=== PATIENT | female | born 1990 | race Caucasian/White ===

== ENCOUNTER 2023-10-13 07:54 | Emergency (ER) | payer OTHER, SELFPAY ==
--- NOTE | ~2023-10-13 | CT_ITS ---
EXAMINATION: CT ABDOMEN AND PELVIS WITH CONTRAST CLINICAL INFORMATION: CVA abdominal pain COMPARISON: None available. TECHNIQUE: Multidetector volumetric images were obtained from the superior aspect of the liver through the pubic symphysis following administration 85 mL of Omnipaque 350 intravenous contrast. Sagittal and coronal reformatted images were obtained on the technologist's workstation. Oral contrast: No This CT examination was performed using dose optimization techniques as appropriate, variously including the following: *Automated exposure control *Adjustment of mA and/or kV according to patient size (this includes techniques or standardized protocols for targeted exams where dose is matched to indication/reason for exam; i.e. extremities or head) *Use of iterative reconstruction technique DLP: 571 mGy-cm FINDINGS: LUNG BASES: The visualized lung bases are unremarkable. LIVER, GALLBLADDER, AND BILIARY TREE: The liver is normal in size, shape, and attenuation. No focal hepatic lesion or biliary ductal dilatation is present. The gallbladder has been surgically removed. PANCREAS: Unremarkable. SPLEEN: Unremarkable. ADRENAL GLANDS: Unremarkable. KIDNEYS AND URETERS: The kidneys are normal in size, shape, and attenuation. No hydronephrosis, hydroureter, or calculi seen. No perinephric stranding. BLADDER: Unremarkable. GASTROINTESTINAL TRACT: There is scattered stool and gas seen throughout the colon without any significant distention. The small bowel loops are normal caliber. Appendix is normal caliber. There is no free fluid or free air. ABDOMINAL WALL: Unremarkable LYMPH NODES: Normal. VASCULAR: Unremarkable. PELVIC VISCERA: Animal free fluid in the pelvis. The uterus is anteverted with a well placed IUD. The ovaries are unremarkable with a irregular shaped enhancing right ovarian density question ruptured corpus luteal cyst. OSSEOUS STRUCTURES: No lytic or sclerotic process seen. CT/CT abdomen pelvis w IV con IMPRESSION: 1. No acute intra-abdominal process seen. 2. Mild constipation. Normal appendix. Fleischner guidelines were followed.
[2023-10-13 08:00] VITALS: BP 143/72; BP 152/84; PULSE 60; PULSE 68; RESP 20; TEMP 36.6; O2SAT 100; O2SAT 98; BMI 34.6
--- NOTE | 2023-10-13 08:06 | ED.NAVMDI ---
HPI - Nausea/Vomiting/Diarrhea General Chief complaint: Abdominal Pain Stated complaint: ABD PAIN Source: patient, EMS and old records reviewed Mode of arrival: EMS Limitations: no limitations History of Present Illness HPI Narrative: 33 yo female with PMH of GERD, anxiety, s/p cholecystectomy, has IUD notes a few years ago was admitted to [facility] with NG tube and abdominal pain but isn't sure why or if it was SBO. She comes in today with c/o abrupt onset n/v/d abdominal cramps that started at 7am. Pain is in upper abdomen. No fevers, no sick contacts, no food exposures. MD elicited complaint: nausea, vomiting, diarrhea and abdominal pain Onset (ago): hour(s) (7am today) Description of vomiting: food contents and watery Description of diarrhea: watery Associated nausea: Yes Associated abdominal pain: Yes Location of pain: epigastric Pain consistency: constant Severity: severe Quality: cramping Exacerbating factors: eating Relieving factors: none Associated symptoms: nausea/vomiting, weakness and other (sweats) Treatment prior to arrival: other (EMS gave zofran with good response) Related Data Previous Rx's Medication Instructions Recorded famotidine 20 mg tablet (Pepcid) 20 mg PO DAILY PRN abdominal 10/13/23 discomfort #30 tabs famotidine 20 mg tablet (Pepcid) 20 mg PO DAILY PRN abdominal 10/13/23 discomfort #30 tabs Allergies Allergy/AdvReac Type Severity Reaction Status Date / Time bactrim Allergy Intermediate Rash Uncoded 10/13/23 08:04 Review of Systems Review of Systems: Constitutional : No Weight loss, No Fever, No Chills ENT/Mouth : No sore throat, No Rhinorrhea Eyes: No Swelling, No Redness Cardiovascular : No Chest Pain, No SOB, NoEdema Respiratory : No Cough, No Sputum, No Wheezing Gastrointestinal : Positive Nausea, Positive Vomiting, positive Diarrhea, positive abdominal Pain, No Hematochezia, No Melena Genitourinary : No Dysuria, No Urinary Frequency, No Hematuria, No Urgency Musculoskeletal : No joint pain, No Myalgias, No Joint Swelling Skin : No Skin Lesions, No rash Neuro : No Weakness, No Numbness, No Dizziness, No Headache Psych : No Anxiety/Panic, No Depression All other systems reviewed and are negative. Gastrointestinal: Gastrointestinal: Reports nausea PMFSH Past Medical History Attestation statement: The following information was validated with the patient. Medical History Anxiety GERD (gastroesophageal reflux disease) Surgical History Hx of cholecystectomy Social History Social History Smoked in Last 30 Days: No Use of substances other than those prescribed or required for medical reasons: No Advance Directives: No Advance Directives Information Provided: No Patient : No Physical Exam Vital Signs: Vital Signs: Last Vital Signs Temp 97.8 F 10/13/23 08:00 Pulse 104 H 10/13/23 09:58 Resp 24 H 10/13/23 09:58 BP 143/72 H 10/13/23 08:00 Pulse Ox 96 10/13/23 09:58 O2 Del Method Room Air 10/13/23 09:58 BMI result Body Mass Index 34.6 Appearance: Alert. Oriented X3. Mild acute distress. Eyes: Pupils equal, round and reactive to light. ENT: Pharynx normal. Neck: Normal inspection. Neck supple. CVS: Normal heart rate and rhythm. Pulses normal. Respiratory: No respiratory distress. Breath sounds normal. Abdomen: Soft and moderate epigastric pain no rebound Skin: Skin warm and dry. Normal skin color. Normal skin turgor. Extremities: No lower extremity edema. No calf ttp Neuro: Oriented X 3. No motor deficit. No sensory deficit. Course Course Course Narrative: [address] [facility] [address] scan after similar episode to today possible early focal colitis of hepatic flexure treated with ceftriaxone and flagyl for possible infectious colitis no NG tube noted in documents and no NG tube uneventful admission DC on augmentin neg for cdiff Reevaluation(s) Reevaluation #1: no relief with IV morphine, IV dilaudid ordered and CT Scan given degree of pain Reevaluation #2: kept down ainsley brook and crackers Medications Administered Discontinued Medications Generic Name Dose Route Start Last Admin Trade Name Freq PRN Reason Stop Dose Admin Famotidine 20 mg 10/13/23 08:04 10/13/23 08:17 Famotidine/Pf 20 Mg/2 Ml Vial IVPUSH 10/13/23 08:05 20 mg ONCE ONE Administration Hydromorphone HCl 1 mg 10/13/23 09:53 10/13/23 09:57 Hydromorphone Hcl 1 Mg/Ml Syringe IVPUSH 10/13/23 09:54 1 mg ONCE ONE Administration Protocol Sodium Chloride 1,000 mls @ 999 mls/hr 10/13/23 08:15 10/13/23 09:36 Ns IV 10/13/23 09:15 Infused .Q1H1M ADALI Infusion Iohexol 85 ml 10/13/23 10:27 10/13/23 10:27 Iohexol 350 Mg/Ml 75 Ml Infus..Btl IV 10/13/23 10:28 85 ml ONCE ONE Administration Ketorolac Tromethamine 15 mg 10/13/23 08:04 10/13/23 08:16 Ketorolac Tromethamine 15 Mg/Ml Vial IVPUSH 10/13/23 08:05 15 mg ONCE ONE Administration Lorazepam 1 mg 10/13/23 11:23 10/13/23 11:29 Lorazepam 1 Mg Tablet PO 10/13/23 11:24 1 mg ONCE ONE Administration Morphine Sulfate 4 mg 10/13/23 08:25 10/13/23 09:24 Morphine Sulfate 4 Mg/Ml Cartridge IVPUSH 10/13/23 08:26 4 mg ONCE ONE Administration Protocol Medical Decision Making Medical Decision Making MDM Narrative: 33 yo female with PMH of GERD, anxiety, s/p cholecystectomy, has IUD here with c/o abrupt onset n/v/d and abdominal cramps without known exposure at this time she also notes an admission to [facility] a few years back requiring NG tube. Will obtain labs, hydrate, pepcid, toradol and obtain records. She notes everything was abrupt onset at once so seems more likely to be viral syndrome in nature. No travel, food exposures, sick contacts. Differential Diagnosis Differential Diagnoses: The differential diagnosis associated with the presentation includes pancreatitis, gastritis, viral syndrome Admission/Observation Consideration of admission/observation: Escalation of care including admission/observation considered labs and CT scan negative symptoms improved able to tolerate PO Lab Data [facility] Lab Attestation statement: I reviewed the patient's lab results. 10/13/23 08:37 10/13/23 08:37 Labs: Lab Results 10/13/23 10/13/23 10/13/23 Range/Units 08:11 08:37 09:01 WBC 10.7 (4.8-10.8) X10*3/uL RBC 5.24 (4.20-5.50) X10*6/uL Hgb 15.6 (12.0-16.0) g/dl Hct 46.7 (37.0-47.0) % MCV 89.1 (80.0-98.0) fL MCH 29.8 (27.0-33.0) pg MCHC 33.4 (31.0-35.0) g/dl RDW 13.7 (11.0-16.0) % Plt Count 265 (160-400) X10*3/uL MPV 9.8 (9.4-12.3) fL Immature Gran % (Auto) 0.5 H (0.0-0.4) % Neut % (Auto) 77.3 H (45-73) % Lymph % (Auto) 14.7 L (20-40) % [place] % (Auto) 4.7 (2-11) % Eos % (Auto) 2.5 (0-4) % Baso % (Auto) 0.3 (0-2) % Lymph # (Auto) 1.6 (1.2-4.9) X10*3/uL [place] # (Auto) 0.5 (0.1-1.2) X10*3/uL Eos # (Auto) 0.3 (0.0-0.4) X10*3/uL Baso # (Auto) 0.0 (0.0-0.2) X10*3/uL Abs Immat Gran (auto) 0.05 H (0.00-0.03) X10*3/uL Absolute Neuts (auto) 8.2 (2.0-8.3) x10*3/uL Absolute Nucleated RBC 0.000 (0.0-0.012) X10*3/uL Nucleated RBC % (auto) 0.0 (0.0-0.2) /100WBC Sodium 143 (135-145) mmol/L Potassium 4.0 (3.3-5.1) mmol/L Chloride 110 H (96-108) mmol/L Carbon Dioxide 23 (22-29) mmol/L Anion Gap 14 (12-20) BUN 10 (9-16) mg/dL Creatinine 0.75 (0.5-1.4) mg/dL Estim Creat Clear Calc 110.6 Estimated GFR > 60 Random Glucose 86 (60-115) mg/dL Calcium 8.3 L (8.4-10.2) mg/dL Magnesium 2.1 (1.6-2.6) mg/dL Total Bilirubin 0.4 (0.0-1.0) mg/dL Direct Bilirubin 0.1 (0.0-0.5) mg/dL AST 21 (5-31) U/L ALT 21 (0-31) U/L Alkaline Phosphatase 35 L (39-117) U/L Total Protein 5.6 L (6.5-8.0) g/dL Albumin 3.4 L (3.5-5.0) g/dL Lipase 14 (8-78) U/L Beta HCG, Quant < 2 mIU/mL Urine Color Yellow Urine Appearance Cloudy Urine pH 7.0 (5.0-9.0) Ur Specific [place] 1.020 (1.005-1.025) Urine Protein Trace (Neg-Trace) mg/dL Urine Glucose (UA) Negative (Negative) mg/dL Urine Ketones Trace (Negative) mg/dL Urine Blood Negative (Negative) Urine Nitrite Negative (Negative) Ur Leukocyte Esterase Small (1+) H (Negative) Urine RBC 0-2 (0-2) /HPF Urine WBC 6-10 (0-5) /HPF Ur Squamous Epith Cells 11-20 (0-2) /HPF Urine Bacteria 1+ (None Seen) Hyaline Casts 0-2 (0-2) /LPF COVID-19 (JE) Negative (Negative) COVID-19 Clin Com See Note Influenza Type A (BETTY) Negative (Negative) Influenza Type B (BETTY) Negative (Negative) Influenza A & B Note See Note Independent Interpretation I performed an independent interpretation of an: CT Scan (no acute findings) Radiology Impression Discussion of test interpretation with radiology: I have reviewed the radiologist's reading. Independent Historian Clinical information obtained from an independent historian. History obtained from or confirmed by: EMS External Record Review External record reviewed: Outpatient record Prescription Management I considered prescription management with: Pain Medication and Other Critical Care Time Critical Care Time Critical Care Time: Yes Total Critical Care Time: 45 Attestation: repeat IV morphine/dilaudid for pain with some improvement, outpatient records review I attest to this time spent taking care of the patient Discharge Plan Discharge Clinical Impression: Abdominal pain Qualifiers: Abdominal location: epigastric Qualified Code(s): R10.13 - Epigastric pain Vomiting Qualifiers: Vomiting type: unspecified Nausea presence: with nausea Qualified Code(s): R11.2 - Nausea with vomiting, unspecified Diarrhea Qualifiers: Diarrhea type: unspecified type Qualified Code(s): R19.7 - Diarrhea, unspecified Patient Disposition: Home, Self-Care Instructions: Acute Nausea and Vomiting (ED), Acute Diarrhea (ED), Abdominal Pain (ED) Additional Instructions: eat a bland diet and advance slowly over 48 hours. return for fevers, worsening pain, increased vomiting inability to eat or drink or any other concerns. Prescriptions: New famotidine [Pepcid] 20 mg tablet 20 mg PO DAILY PRN (Reason: abdominal discomfort) Qty: 30 0RF famotidine [Pepcid] 20 mg tablet 20 mg PO DAILY PRN (Reason: abdominal discomfort) Qty: 30 0RF Stand Alone Forms: Work/School Release
[2023-10-13] MEDS: 0.9 % Sodium Chloride 1,000 ML 999 ML IV (08:16)
[2023-10-13] MEDS: Ketorolac Tromethamine 15 MG/ML VIAL IVPUSH (08:16)
[2023-10-13] MEDS: Famotidine/PF 20 MG/2 ML VIAL IVPUSH (08:17)
[2023-10-13 08:41] LABS: MANUAL DIFF FLAG NO
[2023-10-13 08:43] LABS: Basophils Percent Auto 0.3 % (0-2); Eosinophils Absolute Auto 0.3 X10*3/uL (0.0-0.4); Eosinophils Percent Auto 2.5 % (0-4); Hematocrit 46.7 % (37.0-47.0); Hemoglobin 15.6 g/dl (12.0-16.0); Imm Gran Abs Auto 0.05 X10*3/uL (0.00-0.03); Imm Gran Pct Auto 0.5 % (0.0-0.4); Lymphocytes Absolute Auto 1.6 X10*3/uL (1.2-4.9); Lymphocytes Percent Auto 14.7 % (20-40); Mean Corpuscular HGB Conc 33.4 g/dl (31.0-35.0); Mean Corpuscular Hemoglobin 29.8 pg (27.0-33.0); Mean Corpuscular Volume 89.1 fL (80.0-98.0); Mean Platelet Volume 9.8 fL (9.4-12.3); Monocytes Absolute Auto 0.5 X10*3/uL (0.1-1.2); Monocytes Percent Auto 4.7 % (2-11); Neutrophils Absolute Auto 8.2 x10*3/uL (2.0-8.3); Neutrophils Percent Auto 77.3 % (45-73); Platelet Count 265 X10*3/uL (160-400); Red Blood Count 5.24 X10*6/uL (4.20-5.50); Red Cell Distribution Width 13.7 % (11.0-16.0); White Blood Count 10.7 X10*3/uL (4.8-10.8)
[2023-10-13 08:44] LABS: COVID-19 Test Negative (Negative); IDNOW Serial# 08D9AD1C; IDNOW Serial# 152EDE1D
[2023-10-13 08:45] LABS: Influenza A Negative (Negative); Influenza B2 Negative (Negative)
[2023-10-13 09:07] LABS: Appearance Urine Cloudy; Color Urine Yellow; Glucose Urine UA Negative (Negative); Leukocyte Esterase Urine Small (1+) (Negative); Nitrite Urine Negative (Negative); UMIC TRIGGER UACC YES; Urine Blood Negative (Negative); Urine Ketones Trace mg/dL (Negative); Urine Protein Trace mg/dL (Neg-Trace)
[2023-10-13 09:13] LABS: Alanine Aminotransferase 21 U/L (0-31); Albumin Level 3.4 g/dL (3.5-5.0); Alkaline Phosphatase 35 U/L (39-117); Anion Gap 14 (12-20); Aspartate Amino Transferase 21 U/L (5-31); Bilirubin Direct 0.1 mg/dL (0.0-0.5); Bilirubin Total 0.4 mg/dL (0.0-1.0); Blood Urea Nitrogen 10 mg/dL (9-16); Calcium 8.3 mg/dL (8.4-10.2); Carbon Dioxide 23 mmol/L (22-29); Chloride 110 mmol/L (96-108); Creatinine Clr Calc Pharmacy 110.6; Estimated Glomerular Filt Rate > 60; Glucose Random 86 mg/dL (60-115); Lipase 14 U/L (8-78); Magnesium 2.1 mg/dL (1.6-2.6); Sodium 143 mmol/L (135-145); Total Protein 5.6 g/dL (6.5-8.0)
[2023-10-13 09:16] LABS: HCG Quantitative < 2 mIU/mL
[2023-10-13 09:16] LABS: Bacteria Urine 1+ (None Seen); Hyaline Casts Urine 0-2 /LPF (0-2); RBC Urine 0-2 /HPF (0-2); UACC Culture Trigger YES
[2023-10-13] MEDS: Morphine Sulfate 4 MG/ML CARTRIDGE IVPUSH (09:24)
[2023-10-13 09:57] VITALS: RESP 24
[2023-10-13] MEDS: HYDROmorphone HCl 1 MG/ML SYRINGE IVPUSH (09:57)
[2023-10-13 09:58] VITALS: PULSE 104; RESP 24; O2SAT 96
--- NOTE | 2023-10-13 10:00 | PC.NURSE ---
pt c/o severe acute abdominal pain, similar to this mornings episode. pt tearful, tachycardic and tachypnic. MD Lind made aware, CT with IV con ordered, administered IV Dilaudid per nov. pt off unit at this time to CT scan
[2023-10-13] MEDS: iohexoL 350 MG/ML 75 ML INFUS..BTL 85 ML IV (10:27)
--- NOTE | 2023-10-13 10:54 | PC.NURSE ---
pt reporting that she still feels high from the pain medications, she reports it helped her pain and let her get some sleep, reports that now her pain is climbing again and requesting water. will wait results of ct scan prior to pt getting water.
[2023-10-13] MEDS: LORazepam 1 MG TABLET PO (11:29)
[2023-10-13 12:09] VITALS: BP 119/75; PULSE 65; RESP 16; O2SAT 99
== END 2023-10-13 12:24 | disposition home or self-care (01) ==
PROVIDERS: Emergency Provider Emergency Medicine; PCP Family Medicine
DX: R10.13 Epigastric pain (principal); R11.2 Nausea with vomiting, unspecified; R19.7 Diarrhea, unspecified; Z11.52 Encounter for screening for COVID-19
CPT/HCPCS: 74177; 80048; 80076; 81001; 83690; 83735; 84702; 85025; 87086; 87502; 87635; 96361; 96374; 96375; 99284; 99285; J1170; J1885; J2270; Q9967

== ENCOUNTER 2025-07-23 08:55 | Emergency (ER) | payer OTHER, SELFPAY ==
--- OUTSIDE RECORDS SUMMARY | 2024-07-06 05:30 | XMS_ITS ---
Author Organization [facility] Address [address] [place] [address] Care Team Providers Care Prescriptionist Name Role Phone Sintia Crandall Primary Care Provider Oscar Del Rosario Unavailable [phone] Nadeem Bowman Unavailable REASON FOR VISIT cough (IH) Encounters Encounter Location Date Provider Diagnosis [facility] [address] [place] [address] 07/06/2024 Nadeem Bowman Plan Of Treatment Next Appt Details Provider Name:Prasanth galeas, 08/04/2025 03:15:00 PM, [address] [place], [address], Provider Name:Oscar dutton, 04/14/2026 10:00:00 AM, [address] [place], [address], Progress Notes * DYERQUINCY BADILLOELMAOB:02/03 (35 yo F)Acc No.[id number]:07/06/2024 Patient: RAUL MCCARTHY Provider: Eliza Badillo PA-C :1990 A ge:34 Y S ex:Female Date:07/06/2024 Address:[address] [facility] [place] Pcp:Sintia Crandall [facility]'s Default [facility] Subjective: * Chief Complaints: * eliza randall () Care Plan Details* * Electronic signature of Care lewis Bowman PA-C on 07/23/2025 at 10:38 AM EST Sign off status: Pending * Provider: Eliza Badillo PA-C Date: Generated for Juvenal torres/Precious/Devon on: 09/22/2024 10:38 AM EST
--- OUTSIDE RECORDS SUMMARY | 2024-09-30 04:00 | XMS_ITS ---
Author Organization [facility] Address [address] [place] [address] Care Team Providers Care Wireless Development Manager Name Role Phone Sintia Crandall Primary Care Provider [phone] ZoraOscar dutton Unavailable [phone] REASON FOR VISIT flu shot, pt consents to flu today, due for flu (checked miis ldb), no health concerns expressed, imm given Medications Medication SIG (Take, Route, Frequency, Duration) Notes Start Date End Date Status Albuterol Sulfate HFA 108 (90 Base) MCG/ACT Aerosol Solution 2 puff(s) inhaled every 6 hours; Duration: 30 days Active Lexapro 10 MG Tablet 1 tab(s) orally onc e a day; Duration: 90 days Active Omeprazole 20 MG Capsule Delayed Release 1 cap(s) orally once a day; Duration: 90 days Active Adderall XR 15 MG Capsule Extended Release 24 Hour 2 cap(s) orally once a day (in the morning); Duration: 30 days 09/30/2024 Active Mirena (52 MG) 20 MCG/DAY Intrauterine Device 1 ea by intrauterine administration once placed by MAS 04/23/2024 Active Immunizations Vaccine Route Administration Date Status Comme nts FLUBLOK PURCHASED IM Intramuscular 09/30/2024 Administered Encounters Encounter Location Date Provider Diagnosis [facility] [address] [place] [address] 09/30/2024 Sintia Crandall Encounter for immunization Z23 and ADHD, combined type F90.2 Assessments Encounter Date Diagnosis (ICD Code) Assessment Notes Treatment Notes Treatment Clinical Notes Section Notes 09/30/2024 Encounter for immunization (ICD-10 - Z23) 09/30/2024 ADHD, combined type (ICD-10 - F90.2) Plan Of Treatment Medication Medication Name Sig Start Date Stop Date Notes Adderall XR 15 MG Capsule Extended Release 24 Hour 2 cap(s) orally once a day (in the morning); Duration: 30 days 09/30/2024 Next Appt Details Provider Name:Prasanth Torres gudelia, 08/04/2025 03:15:00 PM, [address] , [place], [address], Provider Name:Oscar Salcido Zora dutton, 04/14/2026 10:00:00 AM, [address] [place], [address], Progress Notes * ADELINE DYEROB:02/03 (35 yo F)Acc No.[id number]:09/30/2024 Progress Note Patient: RAUL MCCARTHY Provider: Cristobal Crandall MD :1990 A ge:34 Y S ex:Female Date:09/30/2024 C #:[id number] Address:[address] [place] [address] , [id number] Patient's Default Facility:A [facility] Subjective: * Chief Complaints: * F sonja shotPt consents to flu todayDue for flu (checked miis ldb)No health concerns expressedImm given * Medications: T akingMirena (52 MG) 20 MCG/DAY Intrauterine Device 1 ea by intrauterine administration once , Notes to Pharmacist: placed by MARK 04/23/2024lbuterol Sulfate HFA 108 (90 Base) MCG/ACT Aerosol Solution 2 puff(s) inhaled every 6 hours Adderall XR 15 MG Capsule Extended Release 24 Hour 2 cap(s) orally once a day (in the morning) pt only received 60 caps on 06/24/24Lexapro 10 MG Tablet 1 tab(s) orally once a day Omeprazole 20 MG Capsule Delayed Release 1 cap(s) orally once a day Taking Mirena (52 MG) 20 MCG/DAY Intrauterine Device 1 ea by intrauterine administration once , Notes to Pharmacist: placed by MARK 8/06/2024Taking Albuterol Sulfate HFA 108 (90 Base) MCG/ACT Aerosol Solution 2 puff(s) inhaled every 6 hours Taking Adderall XR 15 MG Capsule Extended Release 24 Hour 2 cap(s) orally once a day (in the morning) pt only received 60 caps on 06/24/24Taking Lexapro 10 MG Tablet 1 tab(s) orally once a day Taking Omeprazole 20 MG Capsule Delayed Release 1 cap(s) orally once a day Assessment: * Assessment: 1. E ncounter for immunization - Z23 (Primary) S pecify :flu 2 . A DHD, combined type - F90.2 Plan: * Treatment: * Immunizations: FLUBLOK PURCHASED : 0.5 mL (Route: Intramuscular) given by Supriya Carranza MA on Left Deltoid (Encounter for immunization) Billing Information: * Visit Code: 41781 Office Visit, Est Pt.NURSE. Care Plan Details* * Electronic signature of Delmis Crandall MD on 07/23/2025 at 10:37 AM EST Sign off status: Pending * Provider: Cristobal Crandall MD Date: 0 09/30/2024 Generated for Juvenal torres/Precious/Devon on: 09/22/2024 10:37 AM EST
--- OUTSIDE RECORDS SUMMARY | 2024-10-29 11:45 | XMS_ITS ---
Author Organization [facility] Address [address] [place] [address] Care Team Providers Care Charge Nurse Name Role Phone Sintia Crandall Primary Care Provider Oscar Del Rosario [phone] REASON FOR VISIT f/u ADHD (IH) Encounters Encounter Location Date Provider Diagnosis [facility] [address] [place] [address] 10/29/2024 Oscar Del Rosario Plan Of Treatment Next Appt Details Provider Name:Prasanth galeas, 08/04/2025 03:15:00 PM, [address] [place], [address], Provider Name:Oscar dutton, 04/14/2026 10:00:00 AM, [address] [place], [address], Progress Notes * ADELINE DYEROB:02/03 (35 yo F)Acc No.[id number]:10/29/2024 Patient: RAUL MCCARTHY Provider: Prince Del Rosario MD :1990 A ge:34 Y S ex:Female Date:10/29/2024 C HN#:[id number] Address:[address] [facility] [place] Pcp:Sintia Crandall Patient's Default Facility:[facility] Subjective: * Chief Complaints: * f /u ADHD (IH) * Electronic signature of Reji Del Rosario MD on 07/23/2025 at 10:38 AM EST Sign off status: Pending * Provider: Prince Del Rosario MD Date: 0 10/29/2024 Generated for Juvenal torres/Precious/Devon on: 1 09/22/2024 10:38 AM EST
--- OUTSIDE RECORDS SUMMARY | 2025-07-20 19:52 | XMS_ITS | Encounter Summary ---
Author Organization [facility] Address [address] [place] [address] Care Team Providers Care Cable Installer Name Role Phone Kylah Del Rosario Primary Care Provider [phone] Reason for Visit * Reason Comments Abdominal Pain Encounter Details Date Type Department Care Team (Late st Contact Info) Description 07/20/2025 7:52 PM EST - 07/20/2025 9:51 PM EST Emergency [facility] [address] [place] [address] Constipation, unspecified constipation type (Primary Dx) Discharge Disposition: Home or Self Care Social History Tobacco Use Types Packs/Day Years Used Date Smoking Tobacco: Never Smokeless Tobacco: Never Tobacco Cessation:Counseling Given: Not Answered Alcohol Use Standard Drinks/Week Comments Never 0 (1 standard drink = 0.6 oz pur e alcohol) Comments No Sex and Gender Information Value Date Recorded Sex Assigned at Not on file Legal Sex Female 7:34 PM EST Gender Identity Not on file Sexual Orientation Not on file documented as of this encounter Last Filed Vital Signs Vital Sign Reading Time Taken Comments Blood Pressure 141/101 07/20/2025 8:49 PM EST Pulse 77 07/20/2025 8:49 PM EST Temperature 36.8 C (98.3 F) 07/20/2025 8:49 PM EST Respiratory Rate 18 07/20/2025 8:49 PM EST Oxygen Saturation 96% 07/20/2025 8:49 PM EST Inhaled Oxygen Concentration - - Weight 81.6 kg (180 lb) 07/20/2025 7:40 PM EST Height 160 cm (5' 3 ) 07/20/2025 7:40 PM EST Body Mass Index 31.89 07/20/2025 7:40 PM EST documented in this encounter Functional Status * Calculated C-SSRS Risk Score (Lifetime/Recent) Answer Date of Assessment Author No Risk Indicated 07/20/2025 7:40 PM Lynette Allison RN * [place] Suicide Severity Rating Scale (Screener/Recent Self-Report) Question Answer Date of Assessment Author 1. Wish to be (Past 1 Month) No 025 7:40 PM Lynette Allison RN 2. Non-Specific Active Suici joycelyn Thoughts (Past 1 Month) No 07/20/2025 7:40 PM Lynette Allison RN 6. Suicidal Behavior (Lifetime) No 7:40 PM Lynette Allison RN documented as of this encounter Discharge Instructions * Discharge Instructions* TERRI Carrillo - 07/20/2025 9:10 PM EST Please follow with your primary care provider. Please use Fleet enema. As discussed, please use [id number] laxatives. Return to the emergency department fevers turn abdominal pain new worsening concerning symptoms * Attachments The following attachments cannot be sent through Care Everywhere. * Constipation ([place]) documented in this encounter Medications at Time of Discharge ondansetron (ZOFRAN) 4 mg tablet Take 1 tablet (4 mg total) by mouth every 6 (six) hours for 3 days. 12 tablet 07/20/2025 07/23/2025 documented as of this encounter Ordered Prescriptions Prescription Sig Dispense Quantity Refills Last Filled Start Date End Date ondansetron (ZOFRAN) 4 mg tablet Take 1 tablet (4 mg total) by mouth every 6 (six) hours for 3 days. 12 tablet 07/20/2025 07/23/2025 documented in this encounter Discharge Disposition Disposition Code Departure Means Destination Comment s Home or Self Care Pt [id number]. Pt resting on stretcher in no distress. Pt was breathing with ease on RA. Speaking in complete clear sentences. Pt skin warm, dry and normal in appearance for age. Pt verbalizes understanding discharge instructions and offered no questions. Pt ambulated independently with steady gait. documented in this encounter Progress Notes * Lynette Barrett RN - 07/20/2025 7:41 PM EST I think I bowel obstruction . Pt states she has diffuse abdominal pain with nausea since Monday. Pt has had several doses of laxative, had a small BM a few days agobut last regular BM was last Monday. * TERRI Carrillo - 07/20/2025 7:34 PM EST HPI Chief Complaint Patient presents with Abdominal Pain Patient 35-year-old female past medical history of cholecystectomy presents emergency department for evaluation of constipation, last normal stooling on Monday, has had small stooling a fewhours ago. She has taken several doses of laxatives [id number]. She has associated nausea without vomiting. No history of nephrolithiasis no urinary symptoms. No fevers chills or Abdominal pain. History provided by: Patient title i instructional assistant used: No [place] Coma Scale Score: 15 Patient History Medical History[1] Surgical History[2] Family History[3] Social History Tobacco Use Smoking status: Never Smokeless tobacco: Never Substance Use Topics Alcohol use: Never Drug use: Never Review of Systems Review of Systems All other systems reviewed and are negative. Physical Exam ED Triage Vitals Temp Heart Rate Resp BP 07/20/25194307/20/25194307/20/25194307/20/251943 36.9 ??C (98.4 ??F) 109 16 (!) 135/103 SpO2 Temp Source Heart Rate Source Patient Position 07/20/25194307/20/25194307/20/25194307/20/252048 98 % Oral Monitor Lying BP Location FiO2 (%) 07/20/251943 -- Left arm Physical Exam Vitals and nursing note reviewed. Constitutional: General: She is not in acute distress. Appearance: Normal appearance. She is normal weight. She is not toxic-appearing or diaphoretic. HENT: Head: Normocephalic and atraumatic. Nose: Nose normal. Mouth/Throat: Mouth: Mucous membranes are moist. Pharynx: No oropharyngeal exudate or posterior oropharyngeal erythema. Eyes: General: No scleral icterus. Extraocular Movements: Extraocular movements intact. Conjunctiva/sclera: Conjunctivae normal. Cardiovascular: Rate and Rhythm: Normal rate and regular rhythm. Pulses: Normal pulses. Heart sounds: Normal heart sounds. Pulmonary: Effort: Pulmonary effort is normal. Breath sounds: Normal breath sounds. Abdominal: Palpations: Abdomen is soft. Tenderness: There is no abdominal tenderness. There is no right CVA tenderness, left CVA tenderness, guarding or rebound. Musculoskeletal: General: Normal range of motion. Cervical back: Normal range of motion and neck supple. Skin: General: Skin is warm and dry. Capillary Refill: Capillary refill takes less than 2 seconds. Neurological: General: No focal deficit present. Mental Status: She is alert. Cranial Nerves: No cranial nerve deficit. Motor: No weakness. Gait: Gait normal. ED Course & MDM ED Course as of 07/20/252132 Sun Jul 20, [id number] CBC and differential(!) No clinically significant abnormality. No leukocytosis leukopenia acute anemia platelet abnormality. [AW] 2042 POC , urine manually resulted neg [AW] 2108 Urinalysis with reflex microscopic ([id number]) Negative infectious etiology [AW] 2108 Magnesium normal [AW] 2108 Lipase normal [AW] 2108 Lactate, with Reflex normal [AW] 2108 Comprehensive Metabolic Panel (CMP) No metabolic derangement, no acidemia, no evidence of hepatic or renal injury [AW] ED Course User Index [AW] TERRI Carrillo Clinical Impressions as of 07/20/252132 Constipation, unspecified constipation type Medical Decision Making Differential diagnosis includes gastritis, gastroenteritis diverticulitis diarrhea, IBS Patient hypertensive afebrile hemodynamically stable soft nontender abdomen. Patient has had stooling although loose and small. Labs pursued to assess for sepsis infectious etiology. Patient hemodynamically stable afebrile reassuring lab work with normal lactic. CT abdomen pelvis considered not pursued if risk of radiation outweighs clinical benefit. Patient intact decision making, declines MARCIANO, rectal exam to assess for impaction. I do have lower suspicion for this. Patient given Fleet enema for home. Zofran administered in department. Discharged with similar. Recommended [id number]-tip-irvvuuv laxatives. Return precautions given. Procedures [1] History reviewed. No pertinent past medical history. [2] Past Surgical History: Procedure Laterality Date SECTION, CLASSIC CHOLECYSTECTOMY [3] No family history on file. TERRI Carrillo 07/20/252132 Cosigned by Patric Conrad MD at 07/21/2025 12:58 AM EST documented in this encounter Plan of Treatment Not on file documented as of this encounter Procedures Procedure Name Priority Date/Time Associated Diagnosis Comments POC , URINE DIAGNOSTIC STAT 07/20/2025 8:37 PM EST URINALYSIS WITH REFLEX MICROSCOPIC STAT 07/20/2025 8:28 PM EST URINALYSIS WITH REFLEX MICROSCOPIC STAT 07/20/2025 8:28 PM EST LACTATE, WITH REFLEX STAT 07/20/2025 8:19 PM EST CBC WITH AUTO DIFFERENTIAL STAT 07/20/2025 8:19 PM EST CBC AND DIFFERENTIAL STAT 07/20/2025 8:19 PM EST MAGNESIUM STAT 07/20/2025 8:19 PM EST LIPASE STAT 07/20/2025 8:19 PM EST COMPREHENSIVE METABOLIC PANEL STAT 07/20/2025 8:19 PM EST documented in this encounter Results * POC , urine manually resulted (07/20/2025 8:37 PM EST) HCG, Ur POC Negative Negative POC hCG Int QC Pass? Yes Yes Urine Urine specimen obtained by clean catch procedure / Unknown 07/20/2025 8:37 PM EST us Nery MURRAY POINT OF CARE TEST ENTER /EDIT ORDERABLES Final Result * Urinalysis with reflex microscopic (07/20/2025 8:28 PM EST) Specific [place] Urine 1.012 1.003 - 1.030 LAB URINALYSIS - AUTOMATED METHOD 07/20/2025 9:07 PM [facility] pH, Urine 8.0 5.0 - 8.0 pH LAB URINALYSIS - AUTOMATED METHOD 07/20/2025 9:07 PM [facility] Leukocytes, Urine Negative Negative LAB URINALYSIS - AUTOMATED METHOD 07/20/2025 9:07 PM [facility] Nitrite, Urine Negative Negative LAB URINALYSIS - AUTOMATED METHOD 07/20/2025 9:07 PM [facility] Protein, Urine Negative <=Trace mg/dL LAB URINALYSIS - AUTOMATED METHOD 07/20/2025 9:07 PM [facility] Glucose, Urine Negative Negative mg/dL LAB URINALYSIS - AUTOMATED METHOD 07/20/2025 9:07 PM [facility] Ketones, Urine Negative Negative mg/dL LAB URINALYSIS - AUTOMATED METHOD 07/20/2025 9:07 PM [facility] Urobilinogen, Urine 0.2 0.2 - 1.0 mg/dL LAB URINALYSIS - AUTOMATED METHOD 07/20/2025 9:07 PM [facility] Bilirubin, Urine Negative Negative LAB URINALYSIS - AUTOMATED METHOD 07/20/2025 9:07 PM [facility] Blood, Urine Negative Negative LAB URINALYSIS - AUTOMATED METHOD 07/20/2025 9:07 PM [facility] Urine Urine specimen obtained by clean catch procedure / Unknown Non-blood Collection / Unknown 07/20/2025 8:28 PM EST 07/20/2025 9:04 PM EST us Nery MURRAY LAB URINE ORDERABLES Fin al Result [facility] [address] [place] [address], * (ABNORMAL) CBC auto differential (07/20/2025 8:19 PM EST) [facility] WBC 9.2 4.8 - 10.8 K/mcL LAB HEMETOLOGY METHOD 07/20/2025 8:31 PM EST [facility] RBC 5.50(H) 3.80 - 4.80 M/mcL LAB HEMETOLOGY METHOD 07/20/2025 8:31 PM EST [facility] Hemoglobin 15.5 11.5 - 16.0 g/dL LAB HEMETOLOGY METHOD 07/20/2025 8:31 PM [facility] Hematocrit 46.8 35.0 - 47.0 % LAB HEMETOLOGY METHOD 07/20/2025 8:31 PM [facility] MCV 85.1 79.0 - 98.0 FL LAB HEMETOLOGY METHOD 07/20/2025 8:31 PM EST [facility] MCH 28.2 27.0 - 32.0 pcg LAB HEMETOLOGY METHOD 07/20/2025 8:31 PM [facility] MCHC 33.1 32.0 - 37.0 g/dL LAB HEMETOLOGY METHOD 07/20/2025 8:31 PM [facility] RDW 13.5 11.0 - 15.0 % LAB HEMETOLOGY METHOD 07/20/2025 8:31 PM [facility] Platelets 343 130 - 400 K/mcL LAB HEMETOLOGY METHOD 07/20/2025 8:31 PM [facility] MPV 9.9 7.0 - 11.0 FL LAB HEMETOLOGY METHOD 07/20/2025 8:31 PM [facility] NRBC 0.0 <1.0 % LAB HEMETOLOGY METHOD 07/20/2025 8:31 PM [facility] NRBC Absolute 0.00 <0.10 K/mcL LAB HEMETOLOGY METHOD 07/20/2025 8:31 PM [facility] Neutrophils Relative 65.5 % LAB HEMETOLOGY METHOD 07/20/2025 8:31 PM [facility] Lymphocytes Relative 22.1 % LAB HEMETOLOGY METHOD 07/20/2025 8:31 PM [facility] Monocytes Relative 6.8 % LAB HEMETOLOGY METHOD 07/20/2025 8:31 PM [facility] Eosinophils Relative 4.6 % LAB HEMETOLOGY METHOD 07/20/2025 8:31 PM [facility] Basophils Relative 0.5 % LAB HEMETOLOGY METHOD 07/20/2025 8:31 PM [facility] Immature Granulocytes Relative 0.5 % LAB HEMETOLOGY METHOD 07/20/2025 8:31 PM [facility] Neutrophils Absolute 6.03 1.50 - 7.00 K/mcL LAB HEMETOLOGY METHOD 07/20/2025 8:31 PM [facility] Lymphocytes Absolute 2.04 1.00 - 5.00 K/mcL LAB HEMETOLOGY METHOD 07/20/2025 8:31 PM [facility] Monocytes Absolute 0.63 0.20 - 1.00 K/mcL LAB HEMETOLOGY METHOD 07/20/2025 8:31 PM [facility] Eosinophils Absolute 0.42 0.00 - 0.50 K/mcL LAB HEMETOLOGY METHOD 07/20/2025 8:31 PM [facility] Basophils Absolute 0.05 0.00 - 0.20 K/mcL LAB HEMETOLOGY METHOD 07/20/2025 8:31 PM [facility] Immature Granulocytes Absolute 0.05(H) 0.00 - 0.03 K/mcL LAB HEMETOLOGY METHOD 07/20/2025 8:31 PM EST [facility] Blood Venous blood specimen / Unknown Venipuncture / Unknown 07/20/2025 8:19 PM EST 07/20/2025 8:27 PM EST Nery MURRAY LAB BLOOD ORDERABLES Fin al Result Performing Organization Address City/[facility]/ZIP Co de Phone Number [facility] [address] [place] [address], [place] [phone] * Lactate, with Reflex (07/20/2025 8:19 PM EST) LACTIC ACID 1.7 0.4 - 2.0 mmol/L LAB CHEMISTRY METHOD 07/20/2025 8:53 PM EST [facility] Blood Venous blood specimen / Unknown Venipuncture / Unknown 07/20/2025 8:19 PM EST 07/20/2025 8:27 PM EST Nery MURRAY LAB BLOOD ORDERABLES Fin al Result Performing Organization Address [facility]/ZIP Co de Phone Number [facility] [address] [place] [address], [place] [phone] * Lipase (07/20/2025 8:19 PM EST) Lipase 29 13 - 75 unit/L LAB CHEMISTRY METHOD 07/20/2025 8:52 PM EST [facility] Blood Venous blood specimen / Unknown Venipuncture / Unknown 07/20/2025 8:19 PM EST 07/20/2025 8:27 PM EST Nery MURRAY LAB BLOOD ORDERABLES Fin al Result [facility] [address] [place] [address], [place] [phone] * Magnesium (07/20/2025 8:19 PM EST) Magnesium 2.4 1.9 - 2.6 mg/dL LAB CHEMISTRY METHOD 07/20/2025 8:52 PM [facility] Blood Venous blood specimen / Unknown Venipuncture / Unknown 07/20/2025 8:19 PM EST 07/20/2025 8:27 PM EST Nery MURRAY LAB BLOOD ORDERABLES Fin al Result [facility] [address] [place] [address], * Comprehensive Metabolic Panel (CMP) (07/20/2025 8:19 PM EST) Sodium 141 133 - 145 mmol/L LAB CHEMISTRY METHOD 07/20/2025 8:52 PM [facility] Potassium 4.1 3.5 - 5.5 mmol/L LAB CHEMISTRY METHOD 07/20/2025 8:52 PM [facility] Chloride 106 96 - 110 mmol/L LAB CHEMISTRY METHOD 07/20/2025 8:52 PM [facility] CO2 28 21 - 32 mmol/L LAB CHEMISTRY METHOD 07/20/2025 8:52 PM [facility] Anion Gap 7 3 - 11 LAB CHEMISTRY METHOD 07/20/2025 8:52 PM [facility] Glucose 92 70 - 100 mg/dL LAB CHEMISTRY METHOD 07/20/2025 8:52 PM [facility] BUN 8 5 - 25 mg/dL LAB CHEMISTRY METHOD 07/20/2025 8:52 PM [facility] Creatinine 0.60 0.50 - 1.10 mg/dL LAB CHEMISTRY METHOD 07/20/2025 8:52 PM [facility] eGFR 119 >=60 mL/min/1. 73m2 LAB CHEMISTRY METHOD 07/20/2025 8:52 PM [facility] Comment:Calculation based on the Chronic Kidney Disease Epidemiology Collaboration (CKD-EPI) equation refit without adjustment for race. BUN/Creatinine Ratio 13.3 LAB CHEMISTRY METHOD 07/20/2025 8:52 PM [facility] Calcium 9.2 8.5 - 10.5 mg/dL LAB CHEMISTRY METHOD 07/20/2025 8:52 PM [facility] AST (SGOT) 21 10 - 42 unit/L LAB CHEMISTRY METHOD 07/20/2025 8:52 PM [facility] ALT (SGPT) 29 10 - 60 unit/L LAB CHEMISTRY METHOD 07/20/2025 8:52 PM [facility] Alkaline Phosphatase 52 42 - 121 unit/L LAB CHEMISTRY METHOD 07/20/2025 8:52 PM [facility] Total Protein 7.6 6.0 - 8.0 g/dL LAB CHEMISTRY METHOD 07/20/2025 8:52 PM [facility] Albumin 3.9 3.2 - 5.0 g/dL LAB CHEMISTRY METHOD 07/20/2025 8:52 PM [facility] Total Bilirubin 0.3 0.0 - 1.4 mg/dL LAB CHEMISTRY METHOD 07/20/2025 8:52 PM [facility] Blood Venous blood specimen / Unknown Venipuncture / Unknown 07/20/2025 8:19 PM EST 07/20/2025 8:27 PM EST us Nery MURRAY LAB BLOOD ORDERABLES Fin al Result [facility] [address] [place] [address], documented in this encounter Visit Diagnoses Diagnosis Constipation, unspecified constipation type- Primary documented in this encounter Administered Medications Inactive Administered Medications - up to 3 most recent administrations Medication Order MAR Action Action Date Dose Rate Site ondansetron (PF) (ZOFRAN) injection 4 mg 4 mg, intravenous, Once, On 07/20/25 at 0, For 1 dose Given 07/20/2025 9:30 PM EST 4 mg sodium chloride 0.9 % bolus 1,000 mL 1,000 mL, intravenous, at 2,000 mL/hr, Administer over 30 Minutes, Once, On 07/20/25 at 2020, For 1 dose New Bag 07/20/2025 8:38 PM EST 1,000 mL 2000 mL/hr sodium phosphate (FLEET) enema 133 mL 133 mL, rectal, Once, On 07/20/25 at 2110, For 1 dose Given 07/20/2025 9:30 PM EST 133 mL documented in this encounter Active and Recently Administered Medications Due to Daylight Saving Time, this section may contain times in both EDT and EST. Scheduled Medication Order 07/18/2025 07/19/2025 07/20/2025 ondansetron (PF) (ZOFRAN) injection 4 mg (COMPLETED) 4 mg, intravenous, Once, On 07/20/25 at 2109, For 1 dose 2129 (Given - Provid er: Sintia Durand RN) sodium chloride 0.9 % bolus 1,000 mL (COMPLETED) 1,000 mL, intravenous, at 2,000 mL/hr, Administer over 30 Minutes, Once, On 07/20/25 at 2020, For 1 dose 2037 (New Bag - Prov ider: Tami Stewart RN)2129 (Stopped - Provider: Sintia Durand RN) sodium phosphate (FLEET) enema 133 mL (COMPLETED) 133 mL, rectal, Once, On 07/20/25 at 2110, For 1 dose 2129 (Given - Provid er: Sintia Durand RN) documented in this encounter Care Teams Cable Installer Relationship Specialty Start Date End Date Kylah Del Rosario [address] PCP - General Family Medicine 07/20/25 documented as of this encounter
--- NOTE | ~2025-07-23 | CT_ITS ---
EXAMINATION: CT ABDOMEN AND PELVIS WITH CONTRAST CLINICAL INFORMATION: Acute onset diffuse abdominal pain. Radiation to back. COMPARISON: CT abdomen 10/13/2023 TECHNIQUE: Multidetector volumetric images were obtained from the superior aspect of the liver through the pubic symphysis following administration 85 mL of Omnipaque 350 intravenous contrast. Sagittal and coronal reformatted images were obtained on the technologist's workstation. Oral contrast: No This CT examination was performed using dose optimization techniques as appropriate, variously including the following: *Automated exposure control *Adjustment of mA and/or kV according to patient size (this includes techniques or standardized protocols for targeted exams where dose is matched to indication/reason for exam; i.e. extremities or head) *Use of iterative reconstruction technique FINDINGS: LUNG BASES: Mild bibasilar atelectasis. No pericardial or pleural effusion. No pneumothorax. LIVER, GALLBLADDER, AND BILIARY TREE: No focal liver lesion. No biliary duct dilatation. Status postcholecystectomy. PANCREAS: Unremarkable. SPLEEN: Unremarkable. ADRENAL GLANDS: Unremarkable. KIDNEYS AND URETERS: Symmetric enhancement. No suspicious lesions. No renal or ureteral calculi. No hydronephrosis. BLADDER: Unremarkable. GASTROINTESTINAL TRACT: Stomach is partially distended. No dilated small bowel loops. The large colon is nondistended. There is apparent wall prominence of the ascending, transverse, proximal descending colon could relate to lack of distention. Colitis in the appropriate clinical circumstance can have this appearance. No significant pericolonic inflammatory changes are seen. Moderate volume stool in the large colon. Appendix appears unremarkable. Peritoneum: No free fluid. No free air is seen. ABDOMINAL WALL: No significant hernia is appreciated. LYMPH NODES: No pathologically enlarged lymph nodes seen. VASCULAR: Aorta is of normal caliber. The celiac, SMA, renal arteries, THOMPSON are enhancing. Portal vein is enhancing. PELVIC VISCERA: Anteverted uterus. IUD present. The pelvic structures appear within normal limits for CT. OSSEOUS STRUCTURES: No acute or suspicious osseous finding seen. CT/CT abdomen pelvis w IV con IMPRESSION: * Findings in the ascending, transverse, descending colon as detailed above, could be related to lack of distention. Colitis in the appropriate clinical circumstance can have this appearance. Clinically correlate. * No acute intra-abdominal findings otherwise identified. * Mild bibasilar atelectasis. Fleischner guidelines were followed. Electronically signed by: Cory Johnson MD 07/23/2025 11:02 AM [facility]
--- NOTE | ~2025-07-23 | XR_ITS ---
EXAMINATION: XR ABDOMEN KUB CLINICAL INDICATION: abdominal/back pain COMPARISON: Correlated to CT dated October 13, 2023. TECHNIQUE: AP view of the abdomen. FINDINGS: Gas throughout nondilated intestine. No air-fluid levels. Vascular clips right upper quadrant abdomen. T-shaped contraceptive device overlapping the mid lower sacrum. S-shaped curvature of the thoracolumbar spine which could be positional. Spondylosis L4-5 and L5-S1. Patient's large body habitus. XR/XR KUB IMPRESSION: No intestinal obstruction pattern. Mild scoliosis and spondylosis L4-5 and L5-S1. Electronically signed by: Marck Don MD 07/23/2025 09:33 AM EST
[2025-07-23 08:57] VITALS: BP 143/88; PULSE 78; RESP 18; TEMP 36.6; O2SAT 98; BMI 31.9
[2025-07-23 09:20] LABS: MANUAL DIFF FLAG NO
[2025-07-23 09:24] LABS: Hematocrit 44.8 % (37.0-47.0); Hemoglobin 14.8 g/dl (12.0-16.0); Imm Gran Abs Auto 0.02 X10*3/uL (0.00-0.03); Imm Gran Pct Auto 0.3 % (0.0-0.4); Lymphocytes Absolute Auto 1.6 X10*3/uL (1.2-4.9); Mean Corpuscular HGB Conc 33.0 g/dl (31.0-35.0); Mean Corpuscular Hemoglobin 28.6 pg (27.0-33.0); Mean Corpuscular Volume 86.7 fL (80.0-98.0); NRBC Abs Auto 0.000 X10*3/uL (0.0-0.012); NRBC Pct Auto 0.0 /100WBC (0.0-0.2); Platelet Count 282 X10*3/uL (160-400); Red Blood Count 5.17 X10*6/uL (4.20-5.50); White Blood Count 6.9 X10*3/uL (4.8-10.8)
[2025-07-23 09:30] LABS: Appearance Urine Clear; Glucose Urine UA Negative (Negative); PH 7.5 (5.0-9.0); Specific Gravity - Urine <= 1.005 (1.005-1.025)
[2025-07-23 09:33] LABS: UPreg QC Valid YES
--- NOTE | 2025-07-23 09:39 | ED_ITS ---
HPI - Abdominal Pain General Chief Complaint: Abdominal Pain Stated Complaint: Stomach and back pain Time Seen by Provider: 07/23/25 09:17 Source: patient Mode of arrival: ambulatory Limitations: no limitations History of Present Illness ED Provider: CARLITA STRICKLAND PA-C HPI narrative: 35 year old female presents to the ED today for evaluation of acute onset of diffuse abdominal pain with radiation to her back that began while at work early this morning. Associated nausea, no vomiting. She did not trial anything for pain. Patient presented to [facility] 1 week ago. Diagnosed with constipation, discharged home with enema. Has had three BMs since, her last BM was this morning. Passing flatus. Denies fever, chills, urinary sx. Denies etoh use. Surgical history includes cholecystectomy. Related Data Previous Rx's ?Medication ?Instructions ?Recorded famotidine 20 mg tablet (Pepcid) 20 mg PO DAILY PRN ab dominal 10/13/23 discomfort #30 tabs ondansetron 4 mg disintegrating 4 mg PO Q8H PRN nausea and 10/13/23 tablet vomiting #20 tabs amoxicillin 875 mg-potassium 1 tab PO Q12H 7 days #14 tabs 07/23/25 clavulanate 125 mg tablet Allergies Allergy/AdvReac Type Severity Reaction Status Date / Time adhesive Allergy Rash Verified 07/23/25 08:59 bactrim Allergy Intermediate Rash Uncoded 07/23/25 08:59 Review of Systems Review of Systems Yes all other systems are reviewed and are negative PMFSH Past Medical History Attestation statement: The following information was validated with the patient. Source: old records reviewed and nursing notes reviewed Medical History Anxiety GERD (gastroesophageal reflux disease) Surgical History Hx of cholecystectomy Social History Social History Advance Directives: No Advance Directives Information Provided: Yes Do you have a plan to hurt others: No Plan Physical Exam ED Vital Signs: Vital Signs - 24 hr 07/23/25 08:57 07/23/25 10:42 Temperature 98 F Pulse Rate 78 71 Respiratory Rate 18 18 Blood Pressure 143/88 H 115/69 Pulse Oximetry 98 98 Oxygen Delivery Method Room Air Room Air BMI result Body Mass Index 31.9 Hypertensive, afebrile General: Well appearing, in no acute distress. Skin: Warm, dry, intact. No rashes or lesions. Head: Normocephalic, atraumatic. EENT: Hearing is intact b/l. Conjunctiva clear. Sclera is anicteric. PERRLA. EOM intact. Moist mucous membranes.? Cardiac: Chest wall symmetric. RRR Lungs: Normal respiratory effort without accessory muscle use. CTA bilaterally. Abdomen: Obese, soft, nondistended, diffusely tender to palpation without rebound or guarding. Active bowel sounds x4. No CVAT. Back: No midline spinous or paraspinal tenderness. No step off deformity. Ext: Upper and lower extremities atraumatic, without tenderness, deformity, swelling or erythema Neuro: AOx3. Normal speech. Ambulating with steady gait. Course Course Course Narrative: CBC without leukocytosis or left shift. No anemia. H&H stable. Chemistry without acute electrolyte abnormality requiring intervention. No FAY. Normal liver function. Lipase WNL. Urine negative for infection. Urine negative. KUB without significant stool burden. CT abdomen/pelvis without bowel obstruction. Mild degree of colitis. > patient medicated with Toradol with good effect. Will send Augmentin to pharmacy. Patient has remained stable throughout ED visit today. Discussed worrisome signs and symptoms and when to return to the ED. All questions answered at this time. Patient is agreeable with disposition and stable for discharge. Medical Decision Making Medical Decision Making MDM Narrative: hypertensive, vitals are otherwise wnl. she is well appearing, in NAD. on exam, obese, soft, nondistended, diffusely tender to palpation without rebound or guarding. Active bowel sounds x4. No CVAT. Differential diagnoses: appendicitis, diverticulitis, diverticulosis, UTI, IUP, constipation Abdominal exam without peritoneal signs. No evidence of acute abdomen at this time. Well appearing. Low suspicion for acute hepatobiliary disease (including acute cholecystitis), acute infectious processes (pneumonia, hepatitis, pyelonephritis, PID, TOA), vascular catastrophe, bowel obstruction or viscus perforation, ovarian cyst/ rupture/ torsion, ectopic. Presentation not consistent with other acute, emergent causes of abdominal pain at this time. Plan: labs, UA, CT AP, pain control, fluids, serial reassessment Differential Diagnosis Differential Diagnoses: The differential diagnosis associated with the presentation includes as above. Admission/Observation not indicated Lab Data MDM Lab Attestation statement: I reviewed the patient's lab results. as above. 07/23/25 09:09 07/23/25 09:09 Labs: Lab Results 07/23/25 07/23/25 Range/Units 09:09 09:14 WBC 6.9 (4.8-10.8) X10*3/uL RBC 5.17 (4.20-5.50) X10*6/uL Hgb 14.8 (12.0-16.0) g/dl Hct 44.8 (37.0-47.0) % MCV 86.7 (80.0-98.0) fL MCH 28.6 (27.0-33.0) pg MCHC 33.0 (31.0-35.0) g/dl RDW 13.9 (11.0-16.0) % Plt Count 282 (160-400) X10*3/uL MPV 9.9 (9.4-12.3) fL Immature Gran % (Auto) 0.3 (0.0-0.4) % Neut % (Auto) 63.8 (45-73) % Lymph % (Auto) 23.2 (20-40) % Evans % (Auto) 7.1 (2-11) % Eos % (Auto) 5.2 H (0-4) % Baso % (Auto) 0.4 (0-2) % Lymph # (Auto) 1.6 (1.2-4.9) X10*3/uL Evans # (Auto) 0.5 (0.1-1.2) X10*3/uL Eos # (Auto) 0.4 (0.0-0.4) X10*3/uL Baso # (Auto) 0.0 (0.0-0.2) X10*3/uL Abs Immat Gran (auto) 0.02 (0.00-0.03) X10*3/uL Absolute Neuts (auto) 4.4 (2.0-8.3) x10*3/uL Absolute Nucleated RBC 0.000 (0.0-0.012) X10*3/uL Nucleated RBC % (auto) 0.0 (0.0-0.2) /100WBC Sodium 141 (135-145) mmol/L Potassium 4.1 (3.3-5.1) mmol/L Chloride 109 H (96-108) mmol/L Carbon Dioxide 27 (22-29) mmol/L Anion Gap 9 L (12-20) BUN 6 L (9-16) mg/dL Creatinine 0.66 (0.5-1.4) mg/dL Estim Creat Clear Calc 118.1 Estimated GFR > 60 Random Glucose 95 (60-115) mg/dL Calcium 9.2 D (8.4-10.2) mg/dL Total Bilirubin 0.5 (0.0-1.0) mg/dL Direct Bilirubin 0.1 (0.0-0.5) mg/dL AST 22 (5-31) U/L ALT 18 (0-31) U/L Alkaline Phosphatase 50 (39-117) U/L Total Protein 7.2 (6.5-8.0) g/dL Albumin 4.4 (3.5-5.0) g/dL Lipase 16 (8-78) U/L Urine Color Yellow Urine Appearance Clear Urine pH 7.5 (5.0-9.0) Ur Specific [place] <= 1.005 (1.005-1.025) Urine Protein Negative (Neg-Trace) mg/dL Urine Glucose (UA) Negative (Negative) mg/dL Urine Ketones Negative (Negative) mg/dL Urine Blood Negative (Negative) Urine Nitrite Negative (Negative) Ur Leukocyte Esterase Negative (Negative) Urine Test NEGATIVE (NEGATIVE) Independent Interpretation I performed an independent interpretation of an: Plain X-Ray and CT Scan Interpretation: ct w/o bowel obstruction kub without significant stool burden Radiology Impression Discussion of test interpretation with radiology: I have reviewed the radiologist's reading. Radiologist Impression: Procedure(s): XR KUB Accession Number(s): [id number] cc: Sintia Crandlal MD; Carlita Strickland~ Reason for Exam: abdominal/back pain EXAMINATION: XR ABDOMEN KUB CLINICAL INDICATION: abdominal/back pain COMPARISON: Correlated to CT dated October 13, 2023. TECHNIQUE: AP view of the abdomen. FINDINGS: Gas throughout nondilated intestine. No air-fluid levels. Vascular clips right upper quadrant abdomen. T-shaped contraceptive device overlapping the mid lower sacrum. S-shaped curvature of the thoracolumbar spine which could be positional. Spondylosis L4-5 and L5-S1. Patient's large body habitus. XR/XR KUB IMPRESSION: No intestinal obstruction pattern. Mild scoliosis and spondylosis L4-5 and L5-S1. Electronically signed by: Marck Don MD 07/23/2025 09:33 AM [facility] Procedure(s): CT abdomen pelvis w IV con Accession Number(s): [id number] cc: Sintia Crandall MD; Carlita Strickland~ Report Number: [id number]: Total DLP = 647.00 mGy-cm Reason for Exam: acute onset diffuse abd pain, rad to back EXAMINATION: CT ABDOMEN AND PELVIS WITH CONTRAST CLINICAL INFORMATION: Acute onset diffuse abdominal pain. Radiation to back. COMPARISON: CT abdomen 10/13/2023 TECHNIQUE: Multidetector volumetric images were obtained from the superior aspect of the liver through the pubic symphysis following administration 85 mL of Omnipaque 350 intravenous contrast. Sagittal and coronal reformatted images were obtained on the technologist's workstation. Oral contrast: No This CT examination was performed using dose optimization techniques as appropriate, variously including the following: *Automated exposure control *Adjustment of mA and/or kV according to patient size (this includes techniques or standardized protocols for targeted exams where dose is matched to indication/reason for exam; i.e. extremities or head) *Use of iterative reconstruction technique FINDINGS: LUNG BASES: Mild bibasilar atelectasis. No pericardial or pleural effusion. No pneumothorax. LIVER, GALLBLADDER, AND BILIARY TREE: No focal liver lesion. No biliary duct dilatation. Status postcholecystectomy. PANCREAS: Unremarkable. SPLEEN: Unremarkable. ADRENAL GLANDS: Unremarkable. KIDNEYS AND URETERS: Symmetric enhancement. No suspicious lesions. No renal or ureteral calculi. No hydronephrosis. BLADDER: Unremarkable. GASTROINTESTINAL TRACT: Stomach is partially distended. No dilated small bowel loops. The large colon is nondistended. There is apparent wall prominence of the ascending, transverse, proximal descending colon could relate to lack of distention. Colitis in the appropriate clinical circumstance can have this appearance. No significant pericolonic inflammatory changes are seen. Moderate volume stool in the large colon. Appendix appears unremarkable. Peritoneum: No free fluid. No free air is seen. ABDOMINAL WALL: No significant hernia is appreciated. LYMPH NODES: No pathologically enlarged lymph nodes seen. VASCULAR: Aorta is of normal caliber. The celiac, SMA, renal arteries, THOMPSON are enhancing. Portal vein is enhancing. PELVIC VISCERA: Anteverted uterus. IUD present. The pelvic structures appear within normal limits for CT. OSSEOUS STRUCTURES: No acute or suspicious osseous finding seen. CT/CT abdomen pelvis w IV con IMPRESSION: * Findings in the ascending, transverse, descending colon as detailed above, could be related to lack of distention. Colitis in the appropriate clinical circumstance can have this appearance. Clinically correlate. * No acute intra-abdominal findings otherwise identified. * Mild bibasilar atelectasis. Fleischner guidelines were followed. Electronically signed by: Cory Johnson MD 07/23/2025 11:02 AM [facility] External Record Review External record reviewed: Inpatient record Prescription Management I considered prescription management with: Pain Medication and Antibiotic Social Determinants Patient?s care significantly limited by Social Determinants of Health including: Other Social Determinant of Health Medications Administered Discontinued Medications Generic Name Dose Route Start Last Admin Trade Name Garretq PRN Reason Stop Dose Admin Iohexol 100 ml 07/23/25 10:28 07/23/25 10:29 Iohexol 350 Mg/Ml 100 Ml Infus..Btl IV 07/23/25 10:29 85 ml ONCE ONE Administration Ketorolac Tromethamine 15 mg 07/23/25 09:52 07/23/25 10:05 Ketorolac Tromethamine 15 Mg/Ml Vial IVPUSH 07/23/25 09:53 15 mg ONCE ONE Administration Critical Care Time Critical Care Time Critical Care Time: No Discharge Plan Discharge Clinical Impression: Colitis Patient Disposition: Home, Self-Care Instructions: Colitis (ED) Additional Instructions: Your blood work and urine today are reassuring. The CT scan of your abdomen shows mild colitis. I am sending Augmentin to your pharmacy. Take this as prescribed. On Augmentin, softer bowel movements are to be expected. Call your provider if you move your bowels more than 4 times a day, your bowel movements are almost all liquid, or you get a rash.? You may take tylenol/motrin at home as needed for pain/discomfort. Return with any new/worsening symptoms. In the case of an emergency call 911. Prescriptions: New amoxicillin-pot clavulanate 875-125 mg tablet 1 tab PO Q12H 7 Days Qty: 14 0RF No Action famotidine [Pepcid] 20 mg tablet 20 mg PO DAILY PRN (Reason: abdominal discomfort) Qty: 30 0RF ondansetron 4 mg tablet,disintegrating 4 mg PO Q8H PRN (Reason: nausea and vomiting) Qty: 20 0RF Referrals: Sintia Crandall MD [Primary Care Provider, Family Practice] Stand Alone Forms: Work/School Release Print Language: Tamazight
[2025-07-23 09:41] LABS: Alanine Aminotransferase 18 U/L (0-31); Albumin Level 4.4 g/dL (3.5-5.0); Alkaline Phosphatase 50 U/L (39-117); Anion Gap 9 (12-20); Aspartate Amino Transferase 22 U/L (5-31); Blood Urea Nitrogen 6 mg/dL (9-16); Calcium 9.2 mg/dL (8.4-10.2); Carbon Dioxide 27 mmol/L (22-29); Chloride 109 mmol/L (96-108); Creatinine Clr Calc Pharmacy 118.1; Estimated Glomerular Filt Rate > 60; Lipase 16 U/L (8-78); Potassium 4.1 mmol/L (3.3-5.1); Sodium 141 mmol/L (135-145); Total Protein 7.2 g/dL (6.5-8.0)
[2025-07-23] MEDS: iohexoL 350 MG/ML 100 ML INFUS..BTL IV (10:29)
--- OUTSIDE RECORDS SUMMARY | 2025-07-23 10:38 | XMS_ITS | Encounter Summary ---
Author Organization [facility] Address [address] [place] [phone] Phone Care Team Providers Care Painter Helper Spray Name Role Phone Sintia Crandall MD Primary Care Provider + Sintia Crandall MD Primary Care Provider + Sintia Crandall MD Unavailable [phone] Amy Pedro CNM Unavailable Aftab Hawkins MD Unavailable Lisa Martino CLAIM EXAMINER Unavailable [phone] Minerva Ivy CLAIM EXAMINER Unavailable [phone] Joselyn Smith MD Unavailable [phone] Genesis Celeste CLAIM EXAMINER Unavailable [phone] Kaitlynn Waterman CNM Unavailable + [phone] Susanna Howard MD Unavailable Sintia Crandall MD Unavailable +[phone] Margie Ojeda MD Unavailable [phone] Abhay Sandoval MD Unavailable [phone] Tonja Cross MD Unavailable [phone] Tina Campbell MD Unavailable [phone] Daysi Verma MD Unavailable +[phone] Sintia Arias MD Unavailable [phone] Sintia Crandall MD Unavailable [phone] Encounter Details Date Type Department Care Team (Late st Contact Info) Description 11/13/2017 Ancillary Orders Virtual Department [address] [place] [address] Chelsey Shelton NP [address] [place] [phone] [email or web address] Abnormal uterine and vaginal bleeding, unspecified (CODE) Social History Tobacco Use Types Packs/Day Years Used Date Smoking Tobacco: Never Assessed Comments Unknown Sex and Gender Information Value Date Recorded Sex Assigned at Not on file Legal Sex Female 9:09 PM EDT Gender Identity Not on file Sexual Orientation Not on file documented as of this encounter Plan of Treatment Not on file documented as of this encounter Results * US PELVIS TRANSABDOMINAL PLUS TRANSVAGINAL (11/16/2017 4:20 PM EST) Anatomical Region Laterality Modality Pelvis, Uterus/Adnexa Ultrasound 11/16/2017 4:23 PM EST Impressions 11/16/2017 4:27 PM EST IUD in place. Trace fluid within the endometrial canal which is consistent with the stated history of bleeding. POS: [id number] Narrative 11/16/2017 4:27 PM EST HISTORY: Abnormal uterine and vaginal bleeding COMPARISON: 03/16/2016 pelvic ultrasound Ultrasonic examination of the pelvis is performed transabdominally and endovaginally. Multiple static images obtained. FINDINGS: Uterus: 5.3 x 3.8 x 9.1 cm. A Mirena IUD is in place. There is a small amount of fluid in the endometrial canal. No focal endometrial lesion is identified. The endometrium is 5 mm. Ovaries: The right ovary is 2.0 x 2.3 x 2.9 cm. The left ovary is 2.0 x 1.3 x 2.2 cm. Bilateral ovarian flow is visualized. The ovaries appear unremarkable. Other: There is a physiologic amount of free fluid in the pelvis. Procedure Note Adalberto Valdovinos MD - 11/16/2017 HISTORY: Abnormal uterine and vaginal bleeding COMPARISON: 03/16/2016 pelvic ultrasound Ultrasonic examination of the pelvis is performed transabdominally andendovaginally. Multiple static images obtained. FINDINGS: Uterus: 5.3 x 3.8 x 9.1 cm. A Mirena IUD is in place. There is a smallamount of fluid in the endometrial canal. No focal endometrial lesion isidentified. The endometrium is 5 mm. Ovaries: The right ovary is 2.0 x 2.3 x 2.9 cm. The left ovary is 2.0 x1.3 x 2.2 cm. Bilateral ovarian flow is visualized. The ovaries appearunremarkable. Other: There is a physiologic amount of free fluid in the pelvis. IMPRESSION: IUD in place. Trace fluid within the endometrial canal which is consistentwith the stated history of bleeding. POS: [id number] us Chelsey Yosef Shelton CLAIM EXAMINER IMG US PELVIS Final R esult documented in this encounter Visit Diagnoses Diagnosis Abnormal uterine and vaginal bleeding, unspecified (CODE) Abnormal uterine and vaginal bleeding, unspecified (CODE) documented in this encounter Care Teams Painter Helper Spray Relationship Specialty Start Date End Date Sintia Crandall MD [address] [place] [phone] [email or web address] PCP - General 07/04/17 10/30/24 Sintia Crandall MD [address] [place] [phone] PCP - General 10/31/24 Sintia Crandall MD [address] [place] [phone] 10/31/24 Amy Pedro CNM [address] [place] [phone] Historical LMR Provider 07/04/17 2 Aftab Hawkins MD [address] [place] [phone] Historical LMR Provider 07/04/17 09/25/21 Lisa Martino CLAIM EXAMINER [address] [place] [phone] [email or web address] Historical LMR Provider 07/04/17 09/25/21 Minerva Ivy NP [address] [place] [phone] [email or web address] Historical LMR Provider 07/04/17 09/25/21 Joselyn Smith MD [address] [place] [address] [email or web address] Historical LMR Provider 07/04/17 09/25/21 Genesis Celeste CLAIM EXAMINER [address] [place] [phone] Historical LMR Provider 07/04/17 2 Kaitlynn Waterman CNM [address] [place] [address] Historical LMR Provider 07/04/17 09/25/21 Susanna Howard MD [address] [place] [address] Historical LMR Provider 07/04/17 09/25/21 Sintia Crandall MD [address] [place] [address] [email or web address] Historical LMR Provider 07/04/17 2 Margie Ojeda MD [address] [place] [address] Historical LMR Provider 07/04/17 2 Abhay Sandoval MD [address] [place] [phone] [email or web address] Historical LMR Provider 07/04/17 09/25/21 Tonja Cross MD [address] [place] [address] Historical LMR Provider 07/04/17 2 iTna Campbell MD [address] [place] [address] Historical LMR Provider 07/04/17 2 Daysi Verma MD [address] [place] [phone] [email or web address] Historical LMR Provider 07/04/17 09/25/21 Sintia Arias MD [address] [place] [phone] Historical LMR Provider 07/04/17 2 Sintia Crandall MD [address] [place] [phone] [email or web address] Insurance Assigned Provider 11/23/24 documented as of this encounter Additional Source Comments The information contained in this document represents components of the legal health record. It is not the complete legal health record.[facility]
--- OUTSIDE RECORDS SUMMARY | 2025-07-23 10:38 | XMS_ITS | Clinical Summary ---
Author Organization [facility] Address [address] [place] [address] Phone Care Team Providers Care Cook Relief Name Role Phone Carin Kylah Primary Care Provider [phone] Allergies Active Allergy Reactions Criticality Noted Date Comments Sulfamethoxazole-Trimethoprim 2024 Medications ondansetron (ZOFRAN) 4 mg tablet Take 1 tablet (4 mg total) by mouth every 6 (six) hours for 3 days. 12 tablet 07/20/2025 Active Active Problems No known active problems Encounters Date Type Department Care Team Description 07/20/2025 7:52 PM EST - 07/20/2025 9:51 PM EST Emergency [facility] Emergency [address] [place] [address] Constipation, unspecified constipation type (Primary Dx) Discharge Disposition: Home or Self Care from Last 3 Months Surgical History Surgery Date Site/Laterality Comments SECTION, CLASSIC CHOLECYSTECTOMY Social History Tobacco Use Types Packs/Day Years [...] on file Sexual Orientation Not on file Obstetrics History Last Filed Vital Signs Vital Sign Reading [...] Mass Index 31.89 07/20/2025 7:40 PM EST Plan of Treatment Health Maintenance Due Date Last Done Comments DTaP,Tdap,and Td Vaccines (1 - Tdap) 02/03/2007 Hepatitis B Vaccines (1 of 3 - 19+ 3-dose series) 02/03/2007 Cervical Cancer Screening: P ap Smear 02/03/2009 HPV Vaccines (1 - 3-dose SCD M series) 02/03/2015 Depression Screening 09/18/2024 COVID-19 Vaccine (1 - 2023-2 5 season) 2025 Influenza Vaccine (#1) 2025 HIV Screening 07/20/2025 Hepatitis C Screening 07/20/2025 Social Influencers of Health Screening 07/20/2025 RSV Immunization Adult Patie nts (1 - 1-dose 75+ series) 02/03/2063 HIB Vaccines Aged Out No longer eligi ble based on patient's age to complete this topic Hepatitis A Vaccines Aged Out No long er eligible based on patient's age to complete this topic IPV Vaccines Aged Out No longer eligi ble based on patient's age to complete this topic MMR Vaccines Aged Out No longer eligi ble based on patient's age to complete this topic Meningococcal ACWY Vaccine Aged Out N o longer eligible based on patient's age to complete this topic Meningococcal B Vaccine Aged Out No l onger eligible based on patient's age to complete this topic Pneumococcal Vaccine: Pediat rics (0 to 5 Years) and At-Risk Patients (6 to 49 Years) Aged Out No longer eligible b ased on patient's age to complete this topic RSV Immunization Patients Un hoda 20 months Aged Out No longer eligible b ased on patient's age to complete this topic Varicella Vaccines Aged Out No longer eligible based on patient's age to complete this topic Procedures Procedure Name Priority Date/Time Associated Diagnosis Comments POC , URINE DIAGNOSTIC STAT 07/20/2025 8:37 PM EST URINALYSIS WITH REFLEX MICROSCOPIC STAT 07/20/2025 8:28 PM EST URINALYSIS WITH REFLEX MICROSCOPIC STAT 07/20/2025 8:28 PM EST CBC WITH AUTO DIFFERENTIAL STAT 07/20/2025 8:19 PM EST CBC AND DIFFERENTIAL STAT 07/20/2025 8:19 PM EST LACTATE, WITH REFLEX STAT 07/20/2025 8:19 PM EST LIPASE STAT 07/20/2025 8:19 PM EST MAGNESIUM STAT 07/20/2025 8:19 PM EST COMPREHENSIVE METABOLIC PANEL STAT 07/20/2025 8:19 PM EST from Last 3 Months Results * POC , urine manually resulted (07/20/2025 8:37 PM EST) Pathologist [facility] HCG, Ur POC Negative Negative POC hCG Int QC Pass? Yes Yes Urine Urine specimen obtained by clean catch procedure / Unknown 07/20/2025 8:37 PM EST Nery MURRAY POINT OF CARE TEST ENTER /EDIT ORDERABLES Final Result * Urinalysis with reflex microscopic (07/20/2025 8:28 PM EST) [facility] Specific Scalf Urine 1.012 1.003 - 1.030 LAB URINALYSIS - AUTOMATED METHOD 07/20/2025 9:07 PM EST [facility] pH, Urine 8.0 5.0 - 8.0 pH LAB URINALYSIS - AUTOMATED METHOD 07/20/2025 9:07 PM EST [facility] Leukocytes, Urine Negative Negative LAB URINALYSIS - AUTOMATED METHOD 07/20/2025 9:07 PM EST [facility] Nitrite, Urine Negative Negative LAB URINALYSIS - AUTOMATED METHOD 07/20/2025 9:07 PM [facility] Protein, Urine Negative <=Trace mg/dL LAB URINALYSIS - AUTOMATED METHOD 07/20/2025 9:07 PM [facility] Glucose, Urine Negative Negative mg/dL LAB URINALYSIS - AUTOMATED METHOD 07/20/2025 9:07 PM [facility] Ketones, Urine Negative Negative mg/dL LAB URINALYSIS - AUTOMATED METHOD 07/20/2025 9:07 PM [facility] Urobilinogen, Urine 0.2 0.2 - 1.0 mg/dL LAB URINALYSIS - AUTOMATED METHOD 07/20/2025 9:07 PM [facility] Bilirubin, Urine Negative Negative LAB URINALYSIS - AUTOMATED METHOD 07/20/2025 9:07 PM [facility] Blood, Urine Negative Negative LAB URINALYSIS - AUTOMATED METHOD 07/20/2025 9:07 PM [facility] Urine Urine specimen obtained by clean catch procedure / Unknown Non-blood Collection / Unknown 07/20/2025 8:28 PM EST 07/20/2025 9:04 PM EST us Nery MURRAY LAB URINE ORDERABLES Fin al Result [facility] [address] [place] [address], * Lactate, with Reflex (07/20/2025 8:19 PM EST) LACTIC ACID 1.7 0.4 - 2.0 mmol/L LAB CHEMISTRY METHOD 07/20/2025 8:53 PM [facility] Blood Venous blood specimen / Unknown Venipuncture / Unknown 07/20/2025 8:19 PM EST 07/20/2025 8:27 PM EST us Nery MURRAY LAB BLOOD ORDERABLES Fin al Result [facility] [address] [place] [address], * (ABNORMAL) CBC auto differential (07/20/2025 8:19 PM EST) WBC 9.2 4.8 - 10.8 K/mcL LAB HEMETOLOGY METHOD 07/20/2025 8:31 PM [facility] RBC 5.50(H) 3.80 - 4.80 M/mcL LAB HEMETOLOGY METHOD 07/20/2025 8:31 PM [facility] Hemoglobin 15.5 11.5 - 16.0 g/dL LAB HEMETOLOGY METHOD 07/20/2025 8:31 PM [facility] Hematocrit 46.8 35.0 - 47.0 % LAB HEMETOLOGY METHOD 07/20/2025 8:31 PM EST [facility] MCV 85.1 79.0 - 98.0 FL LAB HEMETOLOGY METHOD 07/20/2025 8:31 PM [facility] MCH 28.2 27.0 - 32.0 pcg LAB HEMETOLOGY METHOD 07/20/2025 8:31 PM [facility] MCHC 33.1 32.0 - 37.0 g/dL LAB HEMETOLOGY METHOD 07/20/2025 8:31 PM EST [facility] RDW 13.5 11.0 - 15.0 % LAB HEMETOLOGY METHOD 07/20/2025 8:31 PM [facility] Platelets 343 130 - 400 K/mcL LAB HEMETOLOGY METHOD 07/20/2025 8:31 PM [facility] MPV 9.9 7.0 - 11.0 FL LAB HEMETOLOGY METHOD 07/20/2025 8:31 PM [facility] NRBC 0.0 <1.0 % LAB HEMETOLOGY METHOD 07/20/2025 8:31 PM [facility] NRBC Absolute 0.00 <0.10 K/mcL LAB HEMETOLOGY METHOD 07/20/2025 8:31 PM [facility] Neutrophils Relative 65.5 % LAB HEMETOLOGY METHOD 07/20/2025 8:31 PM [facility] Lymphocytes Relative 22.1 % LAB HEMETOLOGY METHOD 07/20/2025 8:31 PM [facility] Monocytes Relative 6.8 % LAB HEMETOLOGY METHOD 07/20/2025 8:31 PM [facility] Eosinophils Relative 4.6 % LAB HEMETOLOGY METHOD 07/20/2025 8:31 PM [facility] Basophils Relative 0.5 % LAB HEMETOLOGY METHOD 07/20/2025 8:31 PM [facility] Immature Granulocytes Relative 0.5 % LAB HEMETOLOGY METHOD 07/20/2025 8:31 PM [facility] Neutrophils Absolute 6.03 1.50 - 7.00 K/mcL LAB HEMETOLOGY METHOD 07/20/2025 8:31 PM [facility] Lymphocytes Absolute 2.04 1.00 - 5.00 K/mcL LAB HEMETOLOGY METHOD 07/20/2025 8:31 PM [facility] Monocytes Absolute 0.63 0.20 - 1.00 K/mcL LAB HEMETOLOGY METHOD 07/20/2025 8:31 PM [facility] Eosinophils Absolute 0.42 0.00 - 0.50 K/mcL LAB HEMETOLOGY METHOD 07/20/2025 8:31 PM [facility] Basophils Absolute 0.05 0.00 - 0.20 K/mcL LAB HEMETOLOGY METHOD 07/20/2025 8:31 PM [facility] Immature Granulocytes Absolute 0.05(H) 0.00 - 0.03 K/mcL LAB HEMETOLOGY METHOD 07/20/2025 8:31 PM EST [facility] Blood Venous blood specimen / Unknown Venipuncture / Unknown 07/20/2025 8:19 PM EST 07/20/2025 8:27 PM EST Nery MURRAY LAB BLOOD ORDERABLES Fin al Result [facility] [address] [place] [address], [place] [phone] * Magnesium (07/20/2025 8:19 PM EST) Magnesium 2.4 1.9 - 2.6 mg/dL LAB CHEMISTRY METHOD 07/20/2025 8:52 PM EST [facility] Blood Venous blood specimen / Unknown Venipuncture / Unknown 07/20/2025 8:19 PM EST 07/20/2025 8:27 PM EST Nery MURRAY LAB BLOOD ORDERABLES Fin al Result Performing Organization Address [facility]/ZIP Co de Phone Number [facility] [address] [place] [address], [place] [phone] * Lipase (07/20/2025 8:19 PM EST) Lipase 29 13 - 75 unit/L LAB CHEMISTRY METHOD 07/20/2025 8:52 PM EST [facility] Blood Venous blood specimen / Unknown Venipuncture / Unknown 07/20/2025 8:19 PM EST 07/20/2025 8:27 PM EST Nery MURRAY LAB BLOOD ORDERABLES Fin al Result Performing Organization Address [place]/[facility]/ZIP Co de Phone Number [facility] [address] [place] [address], [place] [phone] * Comprehensive Metabolic Panel (CMP) (07/20/2025 8:19 PM EST) Sodium 141 133 - 145 mmol/L LAB CHEMISTRY METHOD 07/20/2025 8:52 PM [facility] Potassium 4.1 3.5 - 5.5 mmol/L LAB CHEMISTRY METHOD 07/20/2025 8:52 PM [facility] Chloride 106 96 - 110 mmol/L LAB CHEMISTRY METHOD 07/20/2025 8:52 PM [facility] CO2 28 21 - 32 mmol/L LAB CHEMISTRY METHOD 07/20/2025 8:52 PM [facility] Anion Gap 7 3 - 11 LAB CHEMISTRY METHOD 07/20/2025 8:52 PM [facility] Glucose 92 70 - 100 mg/dL LAB CHEMISTRY METHOD 07/20/2025 8:52 PM [facility] BUN 8 5 - 25 mg/dL LAB CHEMISTRY METHOD 07/20/2025 8:52 PM [facility] Creatinine 0.60 0.50 - 1.10 mg/dL LAB CHEMISTRY METHOD 07/20/2025 8:52 PM [facility] eGFR 119 >=60 mL/min/1. 73m2 LAB CHEMISTRY METHOD 07/20/2025 8:52 PM [facility] Comment:Calculation based on the Chronic Kidney Disease Epidemiology Collaboration (CKD-EPI) equation refit without adjustment for race. BUN/Creatinine Ratio 13.3 LAB CHEMISTRY METHOD 07/20/2025 8:52 PM [facility] Calcium 9.2 8.5 - 10.5 mg/dL LAB CHEMISTRY METHOD 07/20/2025 8:52 PM [facility] AST (SGOT) 21 10 - 42 unit/L LAB CHEMISTRY METHOD 07/20/2025 8:52 PM [facility] ALT (SGPT) 29 10 - 60 unit/L LAB CHEMISTRY METHOD 07/20/2025 8:52 PM EST [facility] Alkaline Phosphatase 52 42 - 121 unit/L LAB CHEMISTRY METHOD 07/20/2025 8:52 PM [facility] Total Protein 7.6 6.0 - 8.0 g/dL LAB CHEMISTRY METHOD 07/20/2025 8:52 PM EST [facility] Albumin 3.9 3.2 - 5.0 g/dL LAB CHEMISTRY METHOD 07/20/2025 8:52 PM [facility] Total Bilirubin 0.3 0.0 - 1.4 mg/dL LAB CHEMISTRY METHOD 07/20/2025 8:52 PM [facility] Blood Venous blood specimen / Unknown Venipuncture / Unknown 07/20/2025 8:19 PM EST 07/20/2025 8:27 PM EST Nery MURRAY LAB BLOOD ORDERABLES Fin al Result [facility] [address] [place] [address], from Last 3 Months Insurance [facility] Care Teams Cook Relief Relationship Specialty Start Date End Date Kylah Del Rosario [address] PCP - General Family Medicine 07/20/25
--- OUTSIDE RECORDS SUMMARY | 2025-07-23 10:39 | XMS_ITS | Patient Health Record ---
Author Organization [facility] shannan Address [address] [place] [address] Care Team Providers Care Senior Producer Name Role Phone Sintia Crandall Primary Care Provider Oscar Del Rosario Unavailable [phone] Goldie Andersen Unavailable [phone] Casey Marc Unavailable [phone] Mirella Holcomb Unavailable [phone] Allergies Allergen (clinical drug ingredient) Drug/Non Drug Allergy documented on EMR Reaction Allergy Type Onset Date Status ADHESIVES (uncoded) rash Allergy Active sulfamethoxazole / trimethoprim Bactrim stomach upset Drug Allergy Active cephalexin Cephalexin hives Drug Allergy Activ e sulfamethoxazole / trimethoprim Sulfamethoxazole -Trimethoprim fever, vomitting with Bactrim Drug Allergy Active nickel Nickel rash Allergy Active Penicillin rash Drug Allergy Active Results Component Value Reference Range Flag Notes Folate Reviewed date:04/15/2025 08:13:34 AM Interpretation: Performing Lab: Notes/Report: FOLIC ACID 6.8 4.2-19.9 ng/mL Vitamin B12 Reviewed date:04/15/2025 08:13:34 AM Interpretation: Performing Lab: Notes/Report: VITAMIN B12 199 503-7153 pg/mL CBC AND DIFFERENTIAL Reviewed date:04/15/2025 08:13:34 AM Interpretation: Performing Lab: Notes/Report: WBC 8.71 4.00-11.00 K/uL RBC 5.27 4.00-5.20 M/uL H HGB 15.3 12.0-16.0 g/dL HCT 46.6 36.0-46.0 % H PLT 247 150-450 K/uL MCV 88.4 80.0-100.0 fL MCH 29.0 27.0-31.0 pg MCHC 32.8 32.0-36.0 g/dL RDW 13.8 11.5-14.5 % MPV 10.9 8.4-12.0 fL NRBC 0.00 0.00 /100 WBCs ABSOLUTE NRBC 0.00 0.00 K/uL DIFF METHOD Auto NEUTS 65.7 48.0-76.0 % LYMPHS 22.3 18.0-41.0 % MONOS 6.3 4.0-11.0 % EOS 4.1 0.0-5.0 % BASOS 0.6 0.0-1.5 % GRANULOCYTES, IMMATURE (%) 1.0 0.0-0.9 % H ABSOLUTE NEUTS 5.72 1.92-7.60 K/uL ABSOLUTE LYMPHS 1.94 0.72-4.10 K/uL ABSOLUTE MONOS 0.55 0.16-1.10 K/uL ABSOLUTE EOS 0.36 0.00-0.50 K/uL ABSOLUTE BASOS 0.05 0.00-0.15 K/uL GRANULOCYTES, IMMATURE 0.09 0.00-0.09 K/uL Rapid Strep Reviewed date:06/25/2025 03:58:17 PM Interpretation:Negative Performing Lab: Notes/Report: Negative Rapid Covid 19 Reviewed date:06/25/2025 03:56:38 PM Interpretation:Negative Performing Lab: Notes/Report: Negative COVID-19, Flu A+B and RSV-14 0140 ([place]) Reviewed date:06/27/2025 02:43:18 PM Interpretation: Performing Lab:Amie French, [address] [place] [address], [place], Phone - [phone], Director - [facility] Notes/Report: Test(s) 987468-Cjogcjcou A, JE; 827684-Hviscvxwu B, JE; 498554- RSV, JE was developed and its performance characteristics determined by [employer]. It has not been cleared or approved by the Food and Drug Administration. SARS-CoV-2, JE Not Detected Not Detected Influenza A, JE Not Detected Not Detected Influenza B, JE Not Detected Not Detected RSV, JE Not Detected Not Detected Test Information: This nucleic acid amplification test was developed and its performance characteristics determined by [employer]. Nucleic acid amplification tests include RT-PCR and TMA. This test has not been FDA cleared or approved. This test has been authorized by FDA under an Emergency Use Authorization (EUA). This test is only authorized for the duration of time the declaration that circumstances exist justifying the authorization of the emergency use of in vitro diagnostic tests for detection of SARS-CoV-2 virus and/or diagnosis of COVID-19 infection under section 564(b)(1) of the Act, 21 U.S.C. 360bbb-3(b) (1), unless the authorization is terminated or revoked sooner. When diagnostic testing is negative, the possibility of a false negative result should be considered in the context of a patient's recent exposures and the presence of clinical signs and symptoms consistent with COVID-19. An individual without symptoms of COVID-19 and who is not shedding SARS-CoV-2 virus would expect to have a negative (not detected) result in this assay. COMP MET PANEL Reviewed date:04/10/2025 02:02:47 PM Interpretation: Performing Lab: Notes/Report: SODIUM 136 133-146 mmol/L POTASSIUM 4.1 3.3-5.1 mmol/L CHLORIDE 102 96-108 mmol/L CO2 24 21-35 mmol/L BUN 10 6-19 mg/dL CREATININE 0.70 0.5-1.5 mg/dL GLUCOSE 94 70-99 mg/dL ALBUMIN 4.4 3.9-4.8 g/dL TOTAL PROTEIN 7.3 6.5-8.0 g/dL CALCIUM 9.4 8.4-10.3 mg/dL ALKALINE PHOSPHATASE 52 39-117 U/L TOTAL BILIRUBIN <0.2 0.0-1.2 mg/dL AST 26 0-37 U/L ALT 14 0-40 U/L EGFR 114 >59 mL/min/1.73m2 Estimat ed glomerular filtration rate calculated using the CKD-EPI refit equation. ANION GAP 14 10-20 mmol/L GLOBULIN 2.9 1-4.8 g/dL Hemoglobin A1c Reviewed date:04/15/2025 08:13:34 AM Interpretation: Performing Lab: Notes/Report: HEMOGLOBIN A1C 4.8 4.3-5.8 % LIPID PANEL Reviewed date:04/15/2025 08:13:34 AM Interpretation: Performing Lab: Notes/Report: HDL 56 Interpretation <40 mg/dL: Low HDL cholesterol (major risk factor for CHD) Greater than or equal to 60 mg/dL: High HDL cholesterol ( negative risk factor for CHD) HDL - cholesterol is affected by a number of factors, e.g. smoking, excerise, hormones, sex and age. CHOLESTEROL 205 0-240 mg/dL TRIGLYCERIDES 185 30-160 mg/dL H LDL 112 50-129 mg/dL LDL levels in terms of risk for coronary heart disease: <100 mg/dL: Optimal 100-129 mg/dL: Near or above optimal 130-159 mg/dL: Borderline high 160-189 mg/dL: High >190 mg/dL: Very High CARDIAC RISK RATIO 3.7 3.3-4.4 25-OH vitamin D Reviewed date:04/15/2025 08:13:34 AM Interpretation: Performing Lab: Notes/Report: 25 OH VIT D (TOTAL) 36 30-60 ng/mL STREPTOCOCCUS, GROUP A CULTU RE Reviewed date:11/02/2024 10:15:18 AM Interpretation: Performing Lab: Notes/Report: SPECIAL REQUESTS None GROUP A STREP CULTURE NEGATIVE FOR GRP A BETA STREPTOCOCCI Rapid Strep Reviewed date:10/31/2024 03:21:17 PM Interpretation:Negative Performing Lab: Notes/Report: Negative RAPID STREP negative rapid Flu Reviewed date:10/31/2024 03:21:40 PM Interpretation:Negative Performing Lab: Notes/Report: Negative Rapid Covid 19 Reviewed date:10/31/2024 03:22:02 PM Interpretation:Negative Performing Lab: Notes/Report: Negative COVID-19, Flu A+B and RSV-14 0140 ([place]) Reviewed date:12/28/2024 07:17:02 AM Interpretation: Performing Lab:[facility], [address] [place] [address], [place], Phone - [phone], Director - Roberto Notes/Report: Clinical Information:SRC: NASAL RSV, JE was developed and its performance characteristics determined by [employer]. It has not been cleared or approved by the Food and Drug Administration. SARS-CoV-2, JE Not Detected Not Detected Influenza A, JE Not Detected Not Detected Influenza B, JE Not Detected Not Detected RSV, JE Not Detected Not Detected Test Information: This nucleic acid amplification test was developed and its performance characteristics determined by [employer]. Nucleic acid amplification tests include RT-PCR and TMA. This test has not been FDA cleared or approved. This test has been authorized by FDA under an Emergency Use Authorization (EUA). This test is only authorized for the duration of time the declaration that circumstances exist justifying the authorization of the emergency use of in vitro diagnostic tests for detection of SARS-CoV-2 virus and/or diagnosis of COVID-19 infection under section 564(b)(1) of the Act, 21 U.S.C. 360bbb-3(b) (1), unless the authorization is terminated or revoked sooner. When diagnostic testing is negative, the possibility of a false negative result should be considered in the context of a patient's recent exposures and the presence of clinical signs and symptoms consistent with COVID-19. An individual without symptoms of COVID-19 and who is not shedding SARS-CoV-2 virus would expect to have a negative (not detected) result in this assay. TSH with reflex Reviewed date:04/10/2025 02:02:47 PM Interpretation: Performing Lab: Notes/Report: TSH 1.45 0.27-4.20 uIU/mL Ferritin Reviewed date:04/15/2025 08:13:34 AM Interpretation: Performing Lab: Notes/Report: FERRITIN 87 13-150 ug/L Iron and iron binding capaci ty Reviewed date:04/15/2025 08:13:34 AM Interpretation: Performing Lab: Notes/Report: IRON 96 30-160 ug/dL IRON BINDING CAPACITY 392 228-428 ug/dL TRANSFERRIN SATURAT. 24 15-50 % Reason For Referral No Information Medications Medication SIG (Take, Route, Frequency, Duration) Notes Start Date End Date Status Albuterol Sulfate HFA 108 (90 Base) MCG/ACT Aerosol Solution 2 puff(s) inhaled every 6 hours; Duration: 30 days As needed Active Doxycycline Hyclate 100 MG Capsule 1 capsule Orally twice a day; Duration: 7 days 06/25/2025 Active traZODone HCl 50 MG Tablet 1/2 to 1 tablet Orally Once a day at night; Duration: 90 days Active Lexapro 10 MG Tablet 1 tab(s) orally onc e a day; Duration: 90 days Active Adderall XR 15 MG Capsule Extended Release 24 Hour 2 cap(s) orally once a day (in the morning); Duration: 90 days 05/21/2025 Active Omeprazole 20 MG Capsule Delayed Release 1 cap(s) orally once a day; Duration: 90 days Active Wixela Inhub 250-50 MCG/ACT Aerosol Powder Breath Activated 1 puff Inhalation Twice a day; Duration: 30 days 06/25/2025 Active Nurtec 75 MG Tablet Disintegrating 1 tablet on the tongue and allow to dissolve Orally 01/01/2025 Active Mirena (52 MG) 20 MCG/DAY Intrauterine Device 1 ea by intrauterine administration once placed by [facility] 04/23/2024 Active Immunizations Vaccine Route Administration Date Status Comme nts Tdap Adacel,purchased [place] intranasal 02/18/2008 Administered Office purchase d Adacel vaccine TDAP >7 PURCHASED (ADACEL) IM Intramuscular 11/20/2018 Administered TB Test history Unknown 11/17/2010 Administered PPD erendira nted by [facility] on 11/17/2010 note reads: patient to return 11/19/10 after 10 am to read TB PPD reading Unknown 11/19/2010 Administered PPD planted by [facility] on 11/17/10 at 9:25 am. read on 11/19/2010 at 3:15 pm pneumovax vaccine history Unknown 07/26/2004 Administered Menactra, purchased IM Intramuscular 10/30/2006 Administered Influenza ,prefilled,(6mo <),pres-free,purch ased IM Intramuscular 09/26/2013 Administered Gardasil, purchased IM Intramuscular 10/30/2006 Administered Gardasil, purchased IM Intramuscular 12/28/2006 Administered office purchase d vaccine Gardasil, purchased IM Intramuscular 04/30/2007 Administered Office purchase d gardasil FLUZONE PURCHASED IM Intramuscular 07/04/2023 Administered Fluzone P, PF, pre-filled IM Intramuscular 09/28/2015 Administered Fluzone P, PF, pre-filled IM Intramuscular 06/23/2016 Administered Fluzone (6mos & up), purchased IM Intramuscular 08/24/2007 Administered state supplied vaccine Fluzone (6mos & up), purchased IM Intramuscular 07/06/2010 Administered Office purchase d Flu Fluzone (6mos & up), purchased IM Intramuscular 06/20/2012 Administered Flumist Vaccine; History Unknown 11/03/2005 Administered Flulaval, purchased IM Intramuscular 06/29/2011 Administered office purchase d abn signed FLULAVAL PURCHASED IM Intramuscular 09/22/2021 Administere d FLUBLOK PURCHASED IM Intramuscular 09/19/2018 Administered FLUBLOK PURCHASED IM Intramuscular 08/26/2019 Administered FLUBLOK PURCHASED IM Intramuscular 06/16/2020 Administered FLUBLOK PURCHASED IM Intramuscular 09/30/2024 Administered COVID-19 Vaccine (Moderna), History Unknown 12/29/2020 Administered COVID-19 Vaccine (Moderna), History Unknown 02/13/2021 Administered Social History Social History Social History Social Info Question Answer Notes AUDIT-C (Standard) Did you have a drink containing alcohol in the past year? Yes How often did you have a drink containing alcohol in the past year? 2 to 4 times a month (2 points) How many drinks did you have on a typical day when you were drinking in the past year? 1 or 2 drinks (0 point) How often did you have six or more drinks on one occasion in the past year? 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 Alcohol: Occasional alcoh ol Caffeine: averages 2 cups a day coffee Marital Status: dating Children: 2 Daughters lives in [place] w ith Jaylon and 2 daughters Section Notes: senior at [employer] but doesn 't like it, working at [employer] 20+HOURS A WEEK(likes it). dating jesús for 2 years now. senior at [employer] but doesn 't like it, working at [employer] 20+HOURS A WEEK(likes it). dating jesús for 2 years now. senior at [employer] but doesn 't like it, working at [employer] 20+HOURS A WEEK(likes it). dating jesús for 2 years now. [employer] in but doesn't lik e it, everything ok at home, has to help a lot at home as father travels for work [employer] in but doesn't lik e it, everything ok at home, has to help a lot at home as father travels for work [employer] in but doesn't lik e it, everything ok at home, has to help a lot at home as father travels for work senior at [employer] but doesn 't like it, working at [employer] 20+HOURS A WEEK(likes it). dating jesús for 2 years now. senior at [employer] but doesn 't like it, working at [employer] 20+HOURS A WEEK(likes it). dating jesús for 2 years now. senior at [employer] but doesn 't like it, working at [employer] 20+HOURS A WEEK(likes it). dating jesús for 2 years now. senior at [employer] but doesn 't like it, working at [employer] 20+HOURS A WEEK(likes it). dating jesús for 2 years now. working at [employer] sn't like it. thinking about going to culinary school, but too expensive. senior at [employer] but doesn 't like it, working at [employer] 20+HOURS A WEEK(likes it). dating jesús for 2 years now. working at [employer] sn't like it. thinking about going to culinary school, but too expensive. working at [employer] sn't like it. thinking about going to culinary school, but too expensive. working at [employer] sn't like it. thinking about going to culinary school, but too expensive. working at [employer] sn't like it. thinking about going to culinary school, but too expensive. working at [employer] sn't like it. thinking about going to culinary school, but too expensive. working at [employer] sn't like it. thinking about going to culinary school, but too expensive. working at [employer] sn't like it. thinking about going to culinary school, but too expensive. Problems Problem Type SNOMED Code ICD Code Onset Dates Problem Status W/U Status Risk Notes Problem Anxiety state (562580662) Anxiety (unspecified) (F41.9) Active confirmed Problem Gastroesophageal reflux disease (533839915) GERD (K21.9) Active confirmed Problem Allergic rhinitis (17820337) Allergic rhinitis, unspecified (J30.9) Active confirmed Problem Sleep disorder (07583761) Sleep disorder, unspecified (G47.9) Active confirmed Problem Exacerbation of asthma (750638342) Asthma exacerbation, unspecified type (J45.901) Active confirmed Problem Vitamin D deficiency (50018750) Vitamin D deficiency, unspecified (E55.9) Active confirmed Problem Iron deficiency (68860417) Iron deficiency (E61.1) Active confirmed Problem Attention deficit hyperactivity disorder (215008302) Attention-defici t hyperactivity disorder, predominantly hyperactive type (F90.1) Active confirmed Problem Refractory migraine without aura (900317470) Migraine without aura, intractable, with status migrainosus (G43.011) Active confirmed Problem Migraine (16806978) Migraine NOS (G43.809) Active confirmed Problem Cerebral cyst (75855888) Cerebral cysts (G93.0) Active confirmed Problem Allergic rhinitis caused by pollen (disorder) (53120400) Allergic rhinitis due to pollen (J30.1) Active confirmed Problem Allergic rhinitis (41506888) Allergic rhinitis, Other (J30.89) Active confirmed Problem Mild intermittent asthma (112527029) Asthma Mild intermittent, uncomplicated (J45.20) Active confirmed Problem Asthma Moderate persistent with (acute) exacerbation (J45.41) Active confirmed Problem Abnormal uterine bleeding (61982619408989) Abnormal uterine and vaginal bleeding, unspecified (N93.9) Active confirmed Problem Anosmia (03082050) Anosmia (R43.0) Active confi rmed Problem Smell and or taste disturbance, Unspecified (R43.9) Active confirmed Problem Genetic screening for disorder (415365434) Encounter for other screening for genetic and chromosomal anomalies (Z13.79) Active confirmed Problem Body mass index 30.00 to 34.99 (604594075930039) BMI 32.0-32.9, adult (Z68.32) Active confirmed Problem Attention deficit hyperactivity disorder (583306014) ADHD, combined type (F90.2) Active confirmed Problem Attention deficit hyperactivity disorder (678971062) ADHD, unspecified type (F90.9) Active confirmed Problem Fatigue (74611942) Fatigue (R53.83) Active conf irmed Problem Gastro-esophageal reflux disease without esophagitis (087865306) Gastro-esophagea l reflux disease without esophagitis (K21.9) Active confirmed Problem Asthma (310756624) Asthma NOS (J45.998) Active confirmed Problem Cough variant asthma (121949751) Cough variant asthma (J45.991) Active confirmed Problem COVID-19 CONFIRMED DX (U07.1) Active confirmed Problem Obesity Class 1(RWB67-34) (E66.811) Active confirmed Problem Gastroesophageal reflux disease (403142460) GERD [Gastroesophagea l reflux disease] (530.81) Problem resolved confirmed Vital Signs Temperature 96.8 degrees Fahrenheit 06/25/2025 Blood pressure diastolic 80 mm Hg 06/25/2025 Oximetry 97 06/25/2025 Height 63.25 in 04/08/2025 Blood pressure systolic 124 mm Hg 06/25/2025 Weight 181.2 lbs 06/25/2025 BMI 32.79 kg/m2 04/08/2025 Procedures Procedure Date Ordered Date Performed Result Body Sit e Spirometry 04/08/2025 N/A Encounters Encounter Location Date Provider Diagnosis [place] [address] [place] [address] 04/08/2025 Oscar Del Rosario Adult physical ANISH L Z00.00 ; Asthma Mild intermittent, uncomplicated J45.20 ; Sleep disorder, unspecified G47.9 ; ADHD, combined type F90.2 ; Obesity Class 1(YPO22-61) E66.811 ; Fatigue R53.83 ; GERD K21.9 ; Vitamin D deficiency, unspecified E55.9 and Encounter for screening for other disorder Z13.[address] [address] 09/30/2024 Sintia Crandall Encounter for immunization Z23 and ADHD, combined type F90.2 [facility] [address] [place] [address] 06/25/2025 Casey Monico Acute cough R05.1 ; Sore throat J02.9 ; Asthma exacerbation, unspecified type J45.901 ; Sinusitis, Acute unspecified J01.90 ; Anxiety (unspecified) F41.9 and GERD K21.[address] [address] 01/01/2025 Sintia Crandall Migraine without aura, intractable, with status migrainosus G43.011 [facility] [address] [place] [address] 10/31/2024 Mirella Holcomb Nasal congestion R09.81 ; URI J06.9 and Asthma exacerbation, unspecified type J45.[address] [address] 11/28/2024 Goldie Andersen ADHD, unspecified type F90.9 [facility] [address] [place] [address] 07/23/2024 Oscar Del Rosario ADHD, unspecified type F90.9 ; Sleep disorder, unspecified G47.9 and Fatigue R53.83 [facility] [address] [place] [address] 05/20/2025 Oscar Del Rosario [facility] [place] [address] [place] [address] 05/16/2025 Oscar Del Rosario [facility] [place] [address] [place] [address] 05/16/2025 Oscar Del Rosario ADHD, combined type F90.2 [facility] [place] [address] [place] [address] 03/31/2025 Oscar Del Rosario [facility] [place] [address] [place] [address] 02/05/2025 Goldie Andersen [facility] [place] [address] [place] [address] 06/27/2025 Casey Marc [facility] [place] [address] [place] [address] 11/26/2024 Sintia Crandall [facility] [place] [address] [place] [address] 10/31/2024 Mirella Holcomb [place] [address] [place] [address] 10/31/2024 Sintia Crandall [place] [address] [place] [address] 07/30/2024 Sintia Woodruff Assessments Encounter Date Diagnosis (ICD Code) Assessment Notes Treatment Notes Treatment Clinical Notes Section Notes 09/30/2024 Encounter for immunization (ICD-10 - Z23) 07/23/2024 Sleep disorder, unspecified (ICD-10 - G47.9) using trazadone regularly, denies signfiicant side effects 07/23/2024 ADHD, unspecified type (ICD-10 - F90.9) Reports ADHD meds working well, no s/e or AE (including insomnia, irritability, increased impulsivity, loss of appetite, weight change, BED sx, cardiac symptoms, crash, or neurological sequelae such as tics or twitches). Non pharm therapies reviewed as well such as exercise, ammy in AM; regular sleep and routines; Avoidance of MJ, ETOH and other recreational drugs; and mindfulness practice. Provided RF of ADHD prescription for patient. Patient will report if the current dose of stimulant no longer seems effective, or if it causes intolerable side effects. Patient is agreeable to the plan of care and is verbalizing good understanding. 10/31/2024 Nasal congestion (ICD-10 - R09.81) 10/31/2024 URI (ICD-10 - J06.9) Upper Respiratory Infections Hydrate: Drink lots of water, juice, clear broth, jello, popsicles, sports drinks or warm lemon water to help loosen mucus and prevent dehydration. Avoid caffeine and alcohol. Rest: Get enough sleep and stay home from work or school to reduce the chance of infecting others. Soothe a sore throat: Gargle with warm salt water, swallow a teaspoon of local honey every 4-6 hours, try lozenges or ice chips, or drink a hot lemon and honey drink. Relieve congestion: Use a cool mist humidifier or vaporizer, saline nasal spray, or saline nasal drops. Take medication: Take ostm-gay-derihdz pain relievers, antihistamines, or decongestants to help with symptoms. You can also try cough suppressants. Adjust the temperature: Keep your room warm but not too hot. Rest your voice: Try not to speak, or speak in a low voice. Eat well: Try chicken soup and other warm fluids to soothe your throat. Btqd-bzx-dzccxat (OTC) medications can help with symptoms of upper respiratory infections (URIs), which are often caused by viruses: - Pain relievers: Acetaminophen (Tylenol) or ibuprofen (Advil, Motrin) can help with fever and body aches - Antihistamines: Can help with nasal congestion and other symptoms - Decongestants: can help with a stuffy, o Nasal decongestant sprays: can be used up to 3 days and include Afrin, Anjum-Synephrine and Dristan Nasal [place]. o Oral decongestants: includes pseudophedrine and phenylephrine. But they can cause side effects like elevated blood pressure, palpitations and insomnia. - Cough suppressants: Dextromethorphan can help with coughing - Expectorants: Guaifenesin can help with chest congestion and making it easier to blow your nose by thinning it out. Most URIs are caused by viruses and are self-limited, getting better on their own within 1-2 weeks. Antibiotics are not effective because they only work on bacterial infections. 11/28/2024 ADHD, unspecified type (ICD-10 - F90.9) Doing well on current med/dose, has been taking for long time per pt; no side-effects, tolerates well. f/u as sched at CPE in about 4 months, sooner prn 01/01/2025 Migraine without aura, intractable, with status migrainosus (ICD-10 - G43.011) intractable migraine also gave samples of nurtec w instructions 04/08/2025 Asthma Mild intermittent, uncomplicated (ICD-10 - J45.20) Symptoms stable. Has Albuterol for rescue use. 04/08/2025 Adult physical NORMAL (ICD-10 - Z00.00) We advise having an annual exam and visit to address age appropriate screening tests including screening for cardiovascular disease, cancers, mood disorders, sexually transmitted infections, and other appropriate conditions based upon age and personal risk factors. We recommend routine vaccines for patient of all ages based on guidance from the CDC Committee on Immunization Practices. https://www.cdc.go v/vaccines/schedul es/downloads/adult /kdqab-yhpzgpdg-pb hedule.pdf We encourage exercise as advised by the USPSTF/AAFP: Try to engage in 150 to 300 minutes of moderate physical activity each week. Any increase in activity is beneficial for health, especially for those under the target range. Adding/increasing strength training or incorporating HIIT workouts is important for bone health. Stress management, healthy relationships, quality sleep, and supportive communities are important factors in contributing to success for individual wellness goals. 06/25/2025 Sore throat (ICD-10 - J02.9) as below J01.90 06/25/2025 Acute cough (ICD-10 - R05.1) 05/16/2025 ADHD, combined type (ICD-10 - F90.2) 06/25/2025 Asthma exacerbation, unspecified type (ICD-10 - J45.901) - Asthma Management - Administer nebulizer treatment in the office to alleviate tightness in the lungs. - Refill albuterol inhaler and steroid inhalers (Symbicort and Wixela) to support asthma management. Encouraged use of steroid inhaler due to tightness in lungs. - Discussed the option of purchasing a nebulizer for home use; patient is not considering purchasing at this time. 04/08/2025 Sleep disorder, unspecified (ICD-10 - G47.9) Continue current regimen of Trazodone, Adderall, and Lexapro as effective. We discussed sleep habits, device use, etc. Suggested resources include attending [facility] Adult Sleep class. Some patients may require a sleep study to adequately assess sleep quality, duration, and depth, and to rule out comorbid conditions such as sleep apnea. In the interim, attention to sleep hygiene and correction of modifiable issues can help. Regular exercise is the most effective sleep aid. Healthy sleeping habits include: -Sleep only as much as necessary to feel rested and then get out of bed. -Maintain a regular sleep schedule (the same bedtime and wake time every day). Do not force sleep. -Avoid caffeinated beverages after lunch. -Avoid alcohol near bedtime. -Do not smoke (particularly during the evening). -Do not go to bed hungry. -Adjust the bedroom environment (light, noise, temperature) so that you are comfortable before you lie down. -Deal with concerns or worries before bedtime. Make a list of things to work on for the next day so anxiety is reduced at night. -Exercise regularly, preferably four or more hours before bedtime. -Avoid prolonged use of phones or reading devices ( e-books ) that give off light before bed. This can make it harder to fall asleep 07/23/2024 Fatigue (ICD-10 - R53.83) Effective sleep, exercise, adequate vitamin D, and sunlight all improve mood. Spending time doing things that you enjoy is vitally important to overall physical and mental wellbeing. Medication is an important adjunct. Please alert us if you experince any new side effects. Thryoid dysfunction and imbalance can contribute to fatigue and down mood. Do not take antidepressants with other substances, especially alcohol and/or marijuana as both are also depressants 10/31/2024 Asthma exacerbation, unspecified type (ICD-10 - J45.901) She is taking symbicort that is not on her list and out of date so we are sending anew one in 09/30/2024 ADHD, combined type (ICD-10 - F90.2) 04/08/2025 ADHD, combined type (ICD-10 - F90.2) Reports ADHD meds working well, no s/e or AE (including insomnia, irritability, increased impulsivity, loss of appetite, weight change, BED sx, cardiac symptoms, crash, or neurological sequelae such as tics or twitches). Non pharm therapies reviewed as well such as exercise, ammy in AM; regular sleep and routines; Avoidance of MJ, ETOH and other recreational drugs; and mindfulness practice. Provided RF of ADHD prescription for patient. Patient will report if the current dose of stimulant no longer seems effective, or if it causes intolerable side effects. Patient is agreeable to the plan of care and is verbalizing good understanding. 06/25/2025 Sinusitis, Acute unspecified (ICD-10 - J01.90) Plan: - Sinus Infection - Prescribe doxycycline 100 mg twice daily for seven days for suspected sinus infection. Advised patient to take with food and avoid sun exposure due to increased sensitivity caused by doxycycline. Instructed to avoid taking doxycycline within two hours of minerals to ensure effectiveness. - Additional Medications - Refill citalopram and omeprazole as requested due to the rescheduling of the appointment. 04/08/2025 Obesity Class 1(QKS35-31) (ICD-10 - E66.811) Having success with weight loss in last year. Utilize the FITTE framework to assess success with your exercise/activity plan. The FITTE principle is a framework for creating an exercise plan that considers how often, how hard, how long, and what type of exercise to do. FITTE stands for: Frequency: How often you exercise? Aim for 3-5 days per week. Intensity: How hard you push yourself? Moderate physical activity, where you can comfortably hold a conversation but feel slightly challenged. Time: How long you exercise? 30-60 minutes per session is advised. Type: What kind of exercise you do? Examples of moderately strenuous activities include brisk walking, gardening, stationary cycling, water aerobics, dancing. Enjoyment: Do you enjoy the current fitness activities? It's easier to stick with fun activities. Any increase in activity is beneficial for health, especially for those under the target range. 06/25/2025 Anxiety (unspecified) (ICD-10 - F41.9) Currently stable Refill medications, continue current regimen 06/25/2025 GERD (ICD-10 - K21.9) Currently stable Refill medications, continue current regimen 04/08/2025 Fatigue (ICD-10 - R53.83) Effective sleep, exercise, adequate vitamin D, and sunlight all improve mood. Spending time doing things that you enjoy is vitally important to overall physical and mental wellbeing. Medication is an important adjunct. Please alert us if you experince any new side effects. Thryoid dysfunction and imbalance can contribute to fatigue and down mood. Do not take antidepressants with other substances, especially alcohol and/or marijuana as both are also depressants 04/08/2025 GERD (ICD-10 - K21.9) Longstanding GERD well managed on PPI. With weight reduction and healthier eating habits it may be possible to reduce PPI use. Long-term risks of PPIs may include an increased risk of certain gut infections or reduced absorption of minerals and nutrients. DEcreased bone density is a known risk, even for men, due to poor calcium absorption. In general, these risks are small. However, even a small risk emphasizes the need to take the lowest possible dose for the shortest possible time. Advised to continue current plan. No medication changes 04/08/2025 Vitamin D deficiency, unspecified (ICD-10 - E55.9) We will recheck. The reference range from the lab is not what we use; ideally we want the level to be > 50. We universally recommend a supplement to all patients in [place]. Please take Vitamin D3 2000 IU daily unless told otherwise based upon updated labwork. Vitamin D is essential for adequate immune function and also optimizes mood 04/08/2025 Encounter for screening for other disorder (ICD-10 - Z13.89) AUDIT-C negative. Alcohol use is directly linked to over 40 medical conditions, including cancer, heart disease, stroke, liver disease, digestive problems, and mental health conditions. 07/23/2024 Other Medical decision-making was shared with the patient, and all questions were addressed. Please excuse any typos or grammatical errors. Contact our office for clarification if needed We are the medical home for this patient. This visit is part of our ongoing, continuous relationship to manage and coordinate the patient's chronic and acute health conditions. which is essential for ensuring optimal health outcomes through comprehensive and coordinated multidisciplinary care. 04/08/2025 Other Medical decision-making was shared with the patient, and all questions were addressed. Please excuse any typos or grammatical errors. Contact our office for clarification if needed. We are the medical home for this patient. This visit is part of our ongoing, continuous relationship to manage and coordinate the patient's chronic and acute health conditions. which is essential for ensuring optimal health outcomes through comprehensive and coordinated multidisciplinary care. Plan Of Treatment Pending Test Test Name Order Date X ray : Chest PA and LAT 11/03/2021 Ultrasound : Right Upper Quadrant 2010 UCG 11/15/2007 UCG 05/22/2007 UCG 12/09/2009 X ray : Knee, right 05/01/2012 Spirometry 01/20/2011 Spirometry 09/26/2014 Spirometry 11/13/2017 Spirometry 03/01/2023 Rapid Strep 06/07/2022 -PAP, cervical, & GC/Chlamyd ia AMP DNA Probe from Thin Prep; HPV DNA Probe if diagnosis of ASCUS 08/27/2010 -PAP, cervical, & GC/Chlamyd ia AMP DNA Probe from Thin Prep; HPV DNA Probe if diagnosis of ASCUS 10/30/2006 URINE CULTURE (395 NOHO) 10/05/2007 -CHLAMYDIA GC, URINE 07/06/2010 -HCG Quant(BPREG) 10/15/2012 -VAGINOSIS/VAGINITIS DNA PRB 10/12/2009 -VAGINOSIS/VAGINITIS DNA PRB 08/21/2009 Ultrasound : Trans Vaginal 10/13/2010 PAP, cervical; HPV Hybrid Capture High R isk DNA Probe any Dx 11/25/2019 PAP, cervical; HPV Hybrid Capture High R isk DNA Probe any Dx 12/22/2020 PAP, cervical, & GC/Chlamydi a AMP DNA probe from ThinPrep; HPV Hybrid Capture High Risk DNA Probe ( 11/13/2017 Ultrasound : Pelvic(not ) 2010 Ultrasound : neck 11/03/2021 Hida scan 03/05/2010 Hida scan 12/22/2009 Hida scan 05/15/2014 TSH WITH REFLEX TO FT4 04/08/2025 Urinalysis, Complete (5463 NOHO) 008 FOLIC ACID 11/20/2018 VITAMIN B12 11/20/2018 HEMOGLOBIN A1C 11/25/2019 HSCRP 11/20/2018 COMPREHENSIVE METABOLIC PANL 09/26/2017 COMPREHENSIVE METABOLIC PANL 11/25/2019 COMPREHENSIVE METABOLIC PANL 11/20/2018 LIPID PANEL 11/25/2019 LIPID PANEL 11/20/2018 HOMOCYSTEINE,PLASMA/SERUM 11/20/2018 TSH WITH REFLEX TO T4 11/25/2019 TSH WITH REFLEX TO T4 11/20/2018 Vitamin D25 OH 11/25/2019 Vitamin D25 OH 11/20/2018 CBC AUTO DIFF 11/25/2019 CBC AUTO DIFF 11/20/2018 CBC AUTO DIFF 09/26/2017 SED RATE 09/26/2017 CRP 09/26/2017 LYME WESTERN BLOT (use this one) 022 URINE CULTURE 05/18/2021 H. PYLORI serum 09/26/2017 BABESIA AB (use this one) 11/04/2021 CHLAMYDIA GC AMP PROBE 01/20/2015 URINALYSIS, COMPLETE 05/18/2021 Ultrasound : Pelvis and Endovag 11/13/19 18 Shoulder Min 2 Views Right 02/24/2017 THYROID PANEL 11/04/2021 IRON, TIBC AND FERRITIN PANEL 04/08/2025 COVID-19 (NOVEL CORONAVIRUS), PCR Driv e Through 09/16/2020 COVID-19 (NOVEL CORONAVIRUS), PCR Driv e Through 09/19/2020 Covid-19 PCR (use this one) 06/07/2022 Covid-19 PCR (use this one) 02/01/2023 Rapid Covid 19 02/01/2023 Rapid Covid 19 06/07/2022 Rapid Covid 19 12/09/2021 Strep Gp A Detection, [id number] (AMHERS T) 10/31/2024 Strep Gp A Detection, [id number] (AMHERS T) 06/25/2025 Spirometry 04/08/2025 Next Appt Details Provider Name:Prasanth Prince galeas, 08/04/2025 03:15:00 PM, [address] [place], [address], Provider Name:Oscar dutton, 04/14/2026 10:00:00 AM, [address] [place], [address], Insurance Providers Payer Name Payer Address Payer Phone Subscriber Number Group Number Insured Name Patient Relationship to Insured Coverage Start Date Coverage End Date [facility] HMO [id number] ALTH [address] BAM DURAN [id number] HARRISHIRAMPILO Clark RAUL Self - patient is the insured Medications Administered Medication Instructions Date of Administration Dosage Notes Ketorolac 01/01/2025 60 mg Mirena 04/23/2024 52 mg Ondansetron 01/01/2025 2 mg Medical (General) History Medical History History ICD Code ADHD Asthma , mild intermittent nickel allergy hx of pneumonia 02/08/06, 07/25/05, 08/27 & 08/01/02 (LLL pneumo), 06/23/16 Migraines Arachnoid cyst 2.3x2.0 later al aspect right sylvian fissure 11/2018 (INCIDENTAL) gastritis allergic rhinitis GERD [Gastroesophageal reflux disease] ( resolved 09/06/2012) COVID19 (08/2020) GI in the past, last seen by Dr. Garcia in 2013 Surgical History Surgery Date(Month/Year) lap cholecystectomy- Dr. Patton 12/[address] Sandoval ,[facility] ([facility] w spinal) 06/20/13 Hospitalization History Reason Date(Month/Year) alcohol intoxication - [facility] 01/26/25 gastritis - [facility] 09/23/17 abdominal pain - [facility] 01/28/2016
--- OUTSIDE RECORDS SUMMARY | 2025-07-23 10:39 | XMS_ITS | Clinical Summary ---
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 Dehydrator Operator Name Role Phone Sintia Crandall MD Primary Care Provider + Sintia Crandall MD Unavailable [phone] Sintia Crandall MD Unavailable [phone] Medications VIT/IRON FUM/FOLIC AC ( TABLET ORAL) Orally Active valACYclovir (VALTREX) 500 MG tablet 1 tablet Orally Once daily 09/15/2016 Active amoxicillin-clav ulanate (AUGMENTIN) 875-125 mg per tablet 1 tablet Orally every 12 hrs 01/27/2017 Active dextroamphetamin e-amphetamine (ADDERALL XR) 15 MG 24 hr capsule 2 caps Orally daily Active Encounters Date Type Department Care Team Description 06/27/2025 Transcribe Orders [facility] Specimen Processing [address] [place] [address] Casey Marc NP Acute pharyngitis, unspecified etiology (Primary Dx) 06/25/2025 8:18 AM EDT - 06/25/2025 11:59 PM EDT Hospital Encounter [facility] Specimen Processing [address] [place] [address] Casey Marc NP Discharge Disposition: Home or Self Care from Last 3 Months Family History Medical History Relation Comments Diabetes mellitus Maternal Grandmother 2 Diabetes mellitus Paternal Grandfather 2 Relation Status Comments Maternal Grandmother 1 Alive Maternal Grandmother 2 Paternal Grandfather 1 Alive Paternal Grandfather 2 Social History Tobacco Use Types Packs/Day Years Used Date Smoking Tobacco: Never Assessed Education Answer Date Recorded Are you interested in more education? Not on azul e 11/04/2024 Are you concerned about learning? Not on file 11/04/2024 No 11/04/2024 No 11/04/2024 Digital Access Answer Date Recorded No 11/04/2024 No 11/04/2024 Reliable internet access at home? Not on file 11/04/2024 Device with a working camera? Not on file Comments Unknown Sex and Gender Information Value Date Recorded Sex Assigned at Not on file Legal Sex Female 9:09 PM EDT Gender Identity Not on file Sexual Orientation Not on file Last Filed Vital Signs Vital Sign Reading Time Taken Comments Blood Pressure 110/64 01/27/2017 4:24 AM EDT Pulse - - Temperature - - Respiratory Rate - - Oxygen Saturation - - Inhaled Oxygen Concentration - - Weight 66.8 kg (147 lb 3.2 oz) 01/27/2017 4:24 A M EDT Height 160.7 cm (5' 3.25 ) 01/27/2017 4:24 AM ED T Body Mass Index 25.87 01/27/2017 4:24 AM EDT Plan of Treatment Not on file Medical Devices Not on file Insurance [facility] EX[employer]ER POS [facility] [employer] [place] [address] [place] [address] [place] [address] [place] [address] [place] [address] [place] [address] EXPLORER POS [facility] [employer] [place] [address] [place] [address] [place] [address] EXPLORER POS [facility] EXPLORER POS [facility] EXPLORER POS Care Teams Alfalfa Dehydrator Operator Relationship Specialty Start Date End Date Sintia Crandall MD [address] [place] [id number] [email or web address] PCP - General 10/31/24 Sintia Crandall MD [address] [place] [phone] 10/31/24 Sintia Crandall MD [address] [place] [phone] [email or web address] Insurance Assigned Provider 11/23/24 Additional Source Comments The information contained in this document represents components of the legal health record. It is not the complete legal health record.[facility]
[2025-07-23 10:42] VITALS: BP 115/69; PULSE 71; RESP 18; O2SAT 98
[2025-07-23 12:06] VITALS: BP 112/66; PULSE 72; RESP 17; TEMP 36.6; O2SAT 97
== END 2025-07-23 12:06 | disposition home or self-care (01) ==
PROVIDERS: Emergency Provider Emergency Medicine; PCP Family Medicine
DX: K52.9 Noninfective gastroenteritis and colitis, unspecified (principal); R10.9 Unspecified abdominal pain; M54.50 Low back pain, unspecified; F41.9 Anxiety disorder, unspecified; K21.9 Gastro-esophageal reflux disease without esophagitis
CPT/HCPCS: 36415; 74018; 74177; 80048; 80076; 81003; 81025; 83690; 85025; 96374; 99284; J1885; Q9967

== ENCOUNTER → 2025-07-23 09:22 | Outpatient (BNV) | payer OTHER, SELFPAY | PROVIDERS: Emergency Provider Emergency Medicine; PCP Family Medicine; Visit Provider Radiology Diagnostic Radiology | DX: J98.11 Atelectasis (principal); R10.9 Unspecified abdominal pain; M47.817 Spondylosis without myelopathy or radiculopathy, lumbosacral region; M41.35 Thoracogenic scoliosis, thoracolumbar region | CPT/HCPCS: 74018; 74177 ==